=== PATIENT | male | born 1975 | race Hispanic/Latino ===

== ENCOUNTER 2018-10-10 14:56 | Emergency (ER) | payer BC, OTHER ==
--- NOTE | 2018-10-10 15:52 | RAD REPORT ---
EXAM DESCRIPTION: RAD - Chest Single View - 10/10/2018 3:34 pm CLINICAL HISTORY: SOB Chest pain. COMPARISON: No comparisons FINDINGS: Portable technique limits examination quality. The lungs are grossly clear. The heart is normal in size. No displaced fractures. IMPRESSION: No acute intrathoracic process suspected.
[2018-10-10 16:07] LABS: Absolute Lymphocytes (CBC) 2.1 K/uL (0.7-4.9); Absolute Monocytes 0.6 K/uL (0.1-1.3); Absolute Neutrophil 5.3 K/uL (1.8-8.0); Basophils % 0.5 % (0-1.3); Eosinophils % 2.3 % (0-4.4); Hematocrit 44.4 % (39.6-49.0); Monocytes % 7.1 % (3.3-12.3); Protime INR 1.08; RBC Red Blood Cell Count 4.72 M/uL (4.33-5.43)
[2018-10-10 16:08] LABS: Barbiturates NEGATIVE (NEGATIVE); Benzodiazepines NEGATIVE (NEGATIVE); Cocaine NEGATIVE (NEGATIVE); METHAMPHETAM NEGATIVE (NEGATIVE); Methadone NEGATIVE (NEGATIVE); Opiates NEGATIVE (NEGATIVE); Phencyclidine NEGATIVE (NEGATIVE); THC Cannibis NEGATIVE (NEGATIVE)
[2018-10-10 16:19] LABS: ALT/SGPT 32 U/L (12-78); AST/SGOT 29 U/L (15-37); Albumin 4.3 g/dL (3.4-5.0); Alkaline Phosphatase 67 U/L (45-117); BUN Blood Urea Nitrogen 11 mg/dL (7-18); Bicarbonate 29 mmol/L (21-32); Bilirubin Direct 0.2 mg/dL (0-0.2); Bilirubin Total 0.6 mg/dL (0.2-1.0); Glucose Level 124 mg/dL (74-106); NT PRO-BNP 19 pg/mL (<125); Potassium 4.2 mmol/L (3.5-5.1); Protein, Total 8.5 g/dL (6.4-8.2); Sodium Level 138 mmol/L (136-145); Troponin (Emerg Dept Use Only) < 0.02 ng/mL (0.0-0.045)
[2018-10-10 16:34] LABS: Urine Blood NEGATIVE (NEG); Urine Glucose NEGATIVE (NEG); Urine Protein NEGATIVE (NEG); Urine pH 5.5 (5.0-7.0)
[2018-10-10] MEDS ORDERED: LORAZEPAM 1 MG TABLET ONE (17:35)
--- NOTE | 2018-10-10 19:08 | EDPHYS ---
Physician Documentation [facility] Name: Himanshu Brown Age: 42 yrs Sex: Male : 1975 Arrival Date: 10/10/2018 Time: 14:57 Bed 7 Private MD: Filiberto Calvillo ED Physician Carlos A Ann HPI: 10/10 16:03 This 42 yrs old Male presents to ER via Ambulatory with complaints of pm1 Shortness Of Breath, Anxiety. 16:03 The patient has shortness of breath at rest. pm1 16:03 Onset: The symptoms/episode began/occurred today, at 14:00. Duration: The symptoms are pm1 continuous. The patient's shortness of breath is aggravated by Anxiety over rising evangelista in his yard from the rain, is alleviated by nothing. Associated signs and symptoms: Pertinent positives: chest pain, Pertinent negatives: non-productive cough, productive cough, dizziness, fever, nausea, vomiting. Severity of symptoms: in the emergency department the symptoms are unchanged. The patient has not experienced similar symptoms in the past. The patient has not recently seen a physician, the patient's primary care provider is Dr. Calvillo. Historical: - Allergies: 15:19 Mefoxin; iw 15:19 cefoxitin; iw - Home Meds: 15:19 metformin 1,000 mg Oral tab 1 tab 2 times per day [Active]; losartan oral oral once iw daily [Active]; amlodipine oral [Active]; Glipizide Oral once daily [Active]; - PMHx: 15:19 Diverticulitis; iw - PSHx: 15:19 patella bursa excised; iw - Immunization history:: Adult Immunizations not up to date. - Social history:: Smoking status: Patient uses tobacco products, smokes one-half pack cigarettes per day. - Ebola Screening: : Patient negative for fever greater than or equal to 101.5 degrees Fahrenheit, and additional compatible Ebola Virus Disease symptoms Patient denies exposure to infectious person Patient denies travel to an Ebola-affected area in the 21 days before illness onset No symptoms or risks identified at this time. ROS: 16:03 Constitutional: Negative for fever, chills, and weight loss, Eyes: Negative for injury, pm1 pain, redness, and discharge, ENT: Negative for injury, pain, and discharge, Neck: Negative for injury, pain, and swelling. 16:03 Abdomen/GI: Negative for abdominal pain, nausea, vomiting, diarrhea, and constipation, Back: Negative for injury and pain, : Negative for injury, bleeding, discharge, and swelling, MS/Extremity: Negative for injury and deformity, Skin: Negative for injury, rash, and discoloration, Neuro: Negative for headache, weakness, numbness, tingling, and seizure. 16:03 Cardiovascular: Positive for chest pain, of the xyphoid area, Negative for edema, orthopnea, palpitations. 16:03 Respiratory: Positive for shortness of breath, Negative for cough, sputum production, wheezing. 16:03 Psych: Positive for anxiety, Negative for drug dependence, alcohol dependence. Exam: 15:16 NSR, Normal ECG, 83 BPM pm1 16:03 Constitutional: This is a well developed, well nourished patient who is awake, alert, pm1 and in no acute distress. Head/Face: Normocephalic, atraumatic. Eyes: Pupils equal round and reactive to light, extra-ocular motions intact. Lids and lashes normal. Conjunctiva and sclera are non-icteric and not injected. Cornea within normal limits. Periorbital areas with no swelling, redness, or edema. ENT: Nares patent. No nasal discharge, no septal abnormalities noted. Tympanic membranes are normal and external auditory canals are clear. Oropharynx with no redness, swelling, or masses, exudates, or evidence of obstruction, uvula midline. Mucous membranes moist. Neck: Trachea midline, no thyromegaly or masses palpated, and no cervical lymphadenopathy. Supple, full range of motion without nuchal rigidity, or vertebral point tenderness. No Meningismus. Chest/axilla: Normal chest wall appearance and motion. Nontender with no deformity. No lesions are appreciated. Cardiovascular: Regular rate and rhythm with a normal S1 and S2. No gallops, murmurs, or rubs. Normal PMI, no JVD. No pulse deficits. Respiratory: Lungs have equal breath sounds bilaterally, clear to auscultation and percussion. No rales, rhonchi or wheezes noted. No increased work of breathing, no retractions or nasal flaring. Abdomen/GI: Soft, non-tender, with normal bowel sounds. No distension or tympany. No guarding or rebound. No evidence of tenderness throughout. Back: No spinal tenderness. No costovertebral tenderness. Full range of motion. Skin: Warm, dry with normal turgor. Normal color with no rashes, no lesions, and no evidence of cellulitis. MS/ Extremity: Pulses equal, no cyanosis. Neurovascular intact. Full, normal range of motion. 16:03 Neuro: Orientation: is normal, Motor: is normal, moves all fours, strength is normal, strength is 5/5 in all extremities. 16:03 Psych: Behavior/mood is anxious, Affect is animated, Oriented to person, place, time, Patient has no thoughts/intents to harm self or others. Vital Signs: 15:20 BP 142 / 95; Pulse 97; Resp 18; Temp 97.5(TE); Pulse Ox 99% on R/A; Weight 82.55 kg; iw Height 5 ft. 8 in. (172.72 cm); Pain 0/10; 15:54 BP 119 / 89; Pulse 75; Resp 16; Pulse Ox 98% ; bp 16:56 BP 124 / 82; Pulse 77; Resp 16; Pulse Ox 98% ; bp 18:30 BP 123 / 73; Pulse 73; Resp 14; Pulse Ox 100% ; bp 19:27 BP 126 / 89; Pulse 77; Resp 16; Temp 97.9; Pulse Ox 99% on R/A; Pain 0/10; aa1 15:20 Body Mass Index 27.67 (82.55 kg, 172.72 cm) iw MDM: 15:10 Patient medically screened. pm1 16:33 Data reviewed: vital signs. Data interpreted: Pulse oximetry: on room air is 98 %. pm1 Interpretation: normal. 10/10 15:18 Order name: Basic Metabolic Panel pm1 10/10 15:18 Order name: CBC with Diff pm1 10/10 15:18 Order name: LFT's pm10/10 15:18 Order name: Magnesium pm1 10/10 15:18 Order name: NT PRO-BNP; Complete Time: 16:32 pm1 10/10 15:18 Order name: PT-INR; Complete Time: 16:13 pm1 10/10 15:18 Order name: Troponin (emerg Dept Use Only); Complete Time: 16:32 pm1 10/10 15:18 Order name: UDS; Complete Time: 16:13 pm1 10/10 15:18 Order name: D-Dimer; Complete Time: 16:13 pm1 10/10 15:19 Order name: Basic Metabolic Panel; Complete Time: 16:32 EDMS 10/10 15:19 Order name: CBC with Automated Diff; Complete Time: 16:13 EDMS 10/10 15:19 Order name: Liver (Hepatic) Function; Complete Time: 16:32 EDMS 10/10 15:19 Order name: Magnesium; Complete Time: 16:32 EDMS 10/10 15:53 Order name: Urine Dipstick--Ancillary (enter results); Complete Time: 16:37 eb 10/10 15:18 Order name: XRAY Chest (1 view); Complete Time: 15:59 pm1 10/10 15:18 Order name: EKG; Complete Time: 15:20 pm1 10/10 15:18 Order name: Cardiac monitoring; Complete Time: 15:53 pm1 10/10 15:18 Order name: EKG - Nurse/Tech; Complete Time: 15:33 pm1 10/10 15:18 Order name: IV Saline Lock; Complete Time: 15:53 pm1 10/10 15:18 Order name: Labs collected and sent; Complete Time: 15:53 pm1 10/10 15:18 Order name: O2 Per Protocol; Complete Time: 15:34 pm1 10/10 15:18 Order name: O2 Sat Monitoring; Complete Time: 15:34 pm1 10/10 18:06 Order name: Troponin (emerg Dept Use Only); Complete Time: 18:49 bp Administered Medications: 17:10 Drug: Ativan 1 mg Route: PO; bp 19:05 Follow up: Response: No adverse reaction; Marked relief of symptoms; Anxiety decreased aa1 Disposition: 10/10/18 19:07 Discharged to Home. Impression: Chest pain, unspecified. - Condition is Stable. - Discharge Instructions: Nonspecific Chest Pain, Aspirin and Your Heart. - Medication Reconciliation Form, Thank You Letter, Antibiotic Education, Prescription Opioid Use form. - Follow up: Filiberto Calvillo MD; When: 2 - 3 days; Reason: Recheck today's complaints, Continuance of care, Re-evaluation by your physician. Follow up: Emergency Department; When: As needed; Reason: Worsening of condition. Addendum: 10/12/2018 07:02 Co-signature as Attending Physician, Carlos A Ann MD. r n Signatures: Dispatcher [employer] EDMS Carisa Summers RN RN aa1 Missy Marino, MECHANIC AND WELDER-C MECHANIC AND WELDER-Csnw Maryjane Hanks RN RN iw Carlos A Ann MD MD rn Marinas, Patrick, PRESS OPERATOR [employer] PRESS OPERATOR [employer] pm1 Solo Colon RN RN bp Corrections: (The following items were deleted from the chart) 10/10 19:28 19:07 10/10/2018 19:07 Discharged to Home. Impression: Chest pain, unspecified. aa1 Condition is Stable. Forms are Medication Reconciliation Form, Thank You Letter, Antibiotic Education, Prescription Opioid Use. Follow up: Filiberto Calvillo; When: 2 - 3 days; Reason: Recheck today's complaints, Continuance of care, Re-evaluation by your physician. Follow up: Emergency Department; When: As needed; Reason: Worsening of condition. snw
--- NOTE | 2018-10-10 19:08 | ER ---
Nurse's Notes [facility] Name: Himanshu Brown Age: 42 yrs Sex: Male : 1975 Arrival Date: 10/10/2018 Time: 14:57 Bed 7 Private MD: Filiberto Calvillo Diagnosis: Chest pain, unspecified Presentation: 10/10 15:10 Presenting complaint: Patient states: all of a sudden got short of breath and felt some iw tightness in center of chest, denies pain, also states he is diabetic and didn't eat anything til 2:30 and had 3 cups of coffee, also feels a bit anxious. Transition of care: patient was not received from another setting of care. Onset of symptoms was October 10, 2018. Risk Assessment: Do you want to hurt yourself or someone else? Patient reports no desire to harm self or others. Initial Sepsis Screen: Does the patient meet any 2 criteria? No. Patient's initial sepsis screen is negative. Does the patient have a suspected source of infection? No. Patient's initial sepsis screen is negative. Care prior to arrival: None. 15:10 Method Of Arrival: Ambulatory iw 15:10 Acuity: RAJAN 3 iw Triage Assessment: 15:15 General: Appears in no apparent distress. comfortable, Behavior is cooperative, bp appropriate for age, anxious. Pain: Complains of pain in chest. EENT: No deficits noted. Neuro: No deficits noted. Cardiovascular: No deficits noted. Respiratory: Reports shortness of breath Onset: The symptoms/episode began/occurred at an unknown time. the patient has mild shortness of breath. GI: No signs and/or symptoms were reported involving the gastrointestinal system. : No signs and/or symptoms were reported regarding the genitourinary system. Derm: No deficits noted. Musculoskeletal: Circulation, motion, and sensation intact. Range of motion: intact in all extremities. Historical: - Allergies: 15:19 Mefoxin; iw 15:19 cefoxitin; iw - Home Meds: 15:19 metformin 1,000 mg Oral tab 1 tab 2 times per day [Active]; losartan oral oral once iw daily [Active]; amlodipine oral [Active]; Glipizide Oral once daily [Active]; - PMHx: 15:19 Diverticulitis; iw - PSHx: 15:19 patella bursa excised; iw - Immunization history:: Adult Immunizations not up to date. - Social history:: Smoking status: Patient uses tobacco products, smokes one-half pack cigarettes per day. - Ebola Screening: : Patient negative for fever greater than or equal to 101.5 degrees Fahrenheit, and additional compatible Ebola Virus Disease symptoms Patient denies exposure to infectious person Patient denies travel to an Ebola-affected area in the 21 days before illness onset No symptoms or risks identified at this time. Screenin:17 Abuse screen: Denies threats or abuse. Denies injuries from another. Nutritional bp screening: No deficits noted. Tuberculosis screening: No symptoms or risk factors identified. Fall Risk None identified. Assessment: 15:17 General: SEE TRIAGE NOTE. Cardiovascular: Rhythm is regular. Respiratory: Airway is bp patent Respiratory effort is even, unlabored, Breath sounds are clear bilaterally. 15:54 Reassessment: ALL CURRENT ORDERS COMPLETED, RESULTS PENDING. VS STABLE ON MONITOR. bp 18:00 Reassessment: REPEAT CARDIAC ENZYMES AND EKG COMPLETED, RESULTS PENDING FOR DISPO. PT bp ASYMPTOMATIC AT THIS TIME. 19:27 Reassessment: Patient appears in no apparent distress at this time. Patient is alert, aa1 oriented x 3, equal unlabored respirations, skin warm/dry/pink. Patient is alert/active/playful, equal unlabored respirations, skin warm/dry/pink. Discussed d/c \T\ f/u instructions with pt; denies questions or concerns at this time. Ambulatory to lobby with steady gait. Patient denies pain at this time. Patient states feeling better. Vital Signs: 15:20 BP 142 / 95; Pulse 97; Resp 18; Temp 97.5(TE); Pulse Ox 99% on R/A; Weight 82.55 kg; iw Height 5 ft. 8 in. (172.72 cm); Pain 0/10; 15:54 BP 119 / 89; Pulse 75; Resp 16; Pulse Ox 98% ; bp 16:56 BP 124 / 82; Pulse 77; Resp 16; Pulse Ox 98% ; bp 18:30 BP 123 / 73; Pulse 73; Resp 14; Pulse Ox 100% ; bp 19:27 BP 126 / 89; Pulse 77; Resp 16; Temp 97.9; Pulse Ox 99% on R/A; Pain 0/10; aa1 15:20 Body Mass Index 27.67 (82.55 kg, 172.72 cm) ED Course: 14:57 Patient arrived in ED. rg4 14:57 Filiberto Calvillo MD is Private Physician. rg4 15:03 Levi Vasquez NP is PHCP. pm1 15:03 Carlos A Ann MD is Attending Physician. pm1 15:15 Solo Colon, RN is Primary Nurse. bp 15:16 Arm band placed on. bp 15:17 Patient has correct armband on for positive identification. Bed in low position. Call bp light in reach. Side rails up X2. 15:18 Triage completed. iw 15:31 XRAY Chest (1 view) In Process Unspecified. EDMS 15:53 Inserted saline lock: 20 gauge in right antecubital area, using aseptic technique. bp Blood collected. 17:44 PHCP role handed off by Levi Vasquez NP snw 17:44 Missy Marino FNP-C is PHCP. snw 19:07 Filiberto Calvillo MD is Referral Physician. snw 19:27 No provider procedures requiring assistance completed. IV discontinued, intact, aa1 bleeding controlled, No redness/swelling at site. Pressure dressing applied. Administered Medications: 17:10 Drug: Ativan 1 mg Route: PO; bp 19:05 Follow up: Response: No adverse reaction; Marked relief of symptoms; Anxiety decreased aa1 Outcome: 19:07 Discharge ordered by . snw 19:27 Discharged to home ambulatory. aa1 19:27 Condition: good 19:27 Discharge instructions given to patient, Instructed on discharge instructions, follow up and referral plans. Demonstrated understanding of instructions, follow-up care. 19:28 Patient left the ED. aa1 Signatures: Dispatcher [employer] EDMS Carisa Summers RN RN aa1 Missy Marino FNP-C FILM OR VIDEOTAPE EDITOR-CsnMaryjane Love RN RN iw Levi Vasquez NP CHIEF CLIENT OFFICER pm1 Betty Burks rg4 Solo Colon, RN RN bp Corrections: (The following items were deleted from the chart) 15:23 15:20 BP 142 / 95; Pulse 97bpm; Resp 18bpm; Pulse Ox 99% RA; 82.55 kg; Height 5 ft. 8 iw in.; BMI: 27.6; Pain 0/10; iw
[2018-10-10 19:46] VITALS: BP 126/89; TEMP 97.9; O2SAT 99
--- NOTE | 2018-10-11 08:47 | EKG ---
Test Date: 2018-10-10 Test Time: 18:17:27 Life Skills Trainer: PATRICIA MEASUREMENT RESULTS: Intervals: Rate: 69 WA: 154 QRSD: 92 QT: 390 QTc: 417 Parkin: P: 47 WA: 154 QRS: -6 T: 28 INTERPRETIVE STATEMENTS: Normal sinus rhythm Normal ECG Compared to ECG 10/10/2018 15:12:40 No significant changes Electronically Signed On 10-11-18 08:46:05 CDT by Leandro Reyes
--- NOTE | 2018-10-11 08:48 | EKG ---
Test Date: 2018-10-10 Test Time: 15:12:40 Fagoter: LA MEASUREMENT RESULTS: Intervals: Rate: 83 GA: 142 QRSD: 88 QT: 370 QTc: 434 Preble: P: 50 GA: 142 QRS: -13 T: 44 INTERPRETIVE STATEMENTS: Normal sinus rhythm Normal ECG No previous ECG available for comparison Electronically Signed On 10-11-18 08:46:15 CDT by Leandro Reyes
== END 2018-10-10 19:28 | disposition home or self-care (01) ==
LOC: ER 14:56
DX: R07.9 Chest pain, unspecified (principal); F17.210 Nicotine dependence, cigarettes, uncomplicated; Z88.8 Allergy status to other drugs, medicaments and biological substances
CPT/HCPCS: 36415; 71045; 80048; 80076; 80307; 81003; 83735; 83880; 84484; 85025; 85379; 85610; 93005; 99284

== ENCOUNTER 2024-04-29 18:06 | Emergency (ER) | payer BC ==
--- OUTSIDE RECORDS SUMMARY | 2024-04-29 18:09 | XMS REPORT | Continuity of Care Document ---
Author Name Unknown Address [address] [facility] th[address] Address [address] [facility] [place] [address] Care Team Providers Care Preparator Name Role Phone Unavailable Unavailable Unavailable Allergies, Adverse Reactions, Alerts Allergy Name Allergy Type Status Severity Reaction(s) Onset Date Inactive Date Treating Clinician Comments Source [facility] Active Hives 2019-06 00:00: 00 [facility] NO KNOWN ALLERGIE S Drug Class Active [facility] Encounters Start Date/Time End Date/Time Encounter Type Admission Type Attending Clinicians Care Facility Care Department Encounter ID Source 2020-05-27 19:30:00 2020-05-27 19:30:00 Emergency X [facility] ERT [id number] [facility] 2020-05-27 17:51:00 2020-05-27 17:51:00 Emergency X [facility] ERT [id number] [facility]
[2024-04-29 18:37] LABS: Absolute Monocytes 0.4 K/uL (0.1-1.3); Absolute Neutrophil 5.9 K/uL (1.8-8.0); Basophils % 0.5 % (0-1.3); Eosinophils % 0.4 % (0-4.4); Hematocrit 41.5 % (39.6-49.0); Hemoglobin 14.4 g/dL (13.6-17.9); Lymphocytes % 13.1 % (15.3-44.8); MCH 32.7 pg (27.0-35.0); MCHC 34.8 g/dL (32.0-36.0); MCV 93.9 fL (80-100); MPV 8.6 fL (7.6-11.3); Monocytes % 5.1 % (3.3-12.3); Neutrophils % 80.9 % (41.7-73.7); Nucleated Red Blood Cells % 0.1 % (0-0); Platelets 203 thou/uL (152-406); RBC Red Blood Cell Count 4.42 M/uL (4.33-5.43)
[2024-04-29 19:04] LABS: Albumin 4.1 g/dL (3.4-5.0); Anion Gap 13.4 mEq/L (5.0-15.0); Bilirubin Direct 0.2 mg/dL (0-0.2); Bilirubin Indirect, Calculated 0.4 mg/dL (0.2-0.8); Bilirubin Total 0.6 mg/dL (0.2-1.0); Potassium 3.4 mEq/L (3.5-5.1); Protein, Total 8.1 g/dL (6.4-8.2); Thyroid Stimulating Hormone 1.68 uIU/mL (0.358-3.740); Troponin High Sensitivity 3.6 pg/mL (<58.9)
--- NOTE | 2024-04-29 19:10 | RAD REPORT ---
EXAM: Chest Single View HISTORY: PALPITATIONS COMPARISON: None. FINDINGS: LUNGS/PLEURA: The lungs are clear. No pleural effusions or pneumothorax. No pulmonary edema. MEDIASTINUM: The mediastinal silhouette is within normal limits. CARDIAC: The cardiac silhouette is within normal limits. UPPER ABDOMEN: No significant abnormality. BONES: No acute fracture. LINES/TUBES/OTHER: N/A IMPRESSION: No evidence of acute cardiopulmonary disease.
--- NOTE | 2024-04-29 19:34 | EDPHYS ---
Physician Documentation [facility] Name: Himanshu Brown Age: 48 yrs Sex: Male : 1975 Arrival Date: 04/29/2024 Time: 18:06 Bed 18 Private MD: ED Physician Ruddy Costa HPI: 04/29 18:46 This 48 yrs old Male presents to ER via Ambulatory with complaints of High rt Blood Pressure, Chest Tightness, Palpitations. 18:46 Patient presents to the ED with palpitations, poor shortness of breath after checking rt his blood pressure. Patient checked his pressure this morning noted that was about 119 systolic, noted that was 135 this afternoon, he rechecked it was to be after, noted that was 145, then checked it again, noting that was 160, subsequent developed reported palpitations, shortness of breath. Patient denies other complaint at this time, symptoms are moderate in severity, no other aggravating alleviating factors.. Historical: - Allergies: 18:18 cefoxitin; ap3 18:18 Mefoxin; ap3 - PMHx: 18:18 Diverticulitis; Hypertensive disorder; Diabetes mellitus; ap3 - Immunization history:: Client reports having NOT received the Covid vaccine. - Infectious Disease History:: Denies. - Social history:: Smoking status: Patient reports the use of cigarette tobacco products, smokes one pack cigarettes per day. - Family history:: not pertinent. ROS: 18:46 Constitutional: Negative for fever, chills, and weight loss, Abdomen/GI: Negative for rt abdominal pain, nausea, vomiting, diarrhea, and constipation, MS/Extremity: Negative for injury and deformity, Skin: Negative for injury, rash, and discoloration, Neuro: Negative for headache, weakness, numbness, tingling, and seizure, 18:46 Cardiovascular: Positive for palpitations, Negative for chest pain, 18:46 Respiratory: Positive for shortness of breath, Negative for cough, Exam: 18:46 Constitutional: This is a well developed, well nourished patient who is awake, alert, rt and in no acute distress. Head/Face: Normocephalic, atraumatic. Chest/axilla: Normal chest wall appearance and motion. Nontender with no deformity. No lesions are appreciated. Cardiovascular: Regular rate and rhythm with a normal S1 and S2. No gallops, murmurs, or rubs. Normal PMI, no JVD. No pulse deficits. Respiratory: Lungs have equal breath sounds bilaterally, clear to auscultation and percussion. No rales, rhonchi or wheezes noted. No increased work of breathing, no retractions or nasal flaring. Abdomen/GI: Soft, non-tender, with normal bowel sounds. No distension or tympany. No guarding or rebound. No evidence of tenderness throughout. Skin: Warm, dry with normal turgor. Normal color with no rashes, no lesions, and no evidence of cellulitis. MS/ Extremity: Pulses equal, no cyanosis. Neurovascular intact. Full, normal range of motion. Neuro: Awake and alert, GCS 15, oriented to person, place, time, and situation. Cranial nerves II-XII grossly intact. Motor strength 5/5 in all extremities. Sensory grossly intact. Cerebellar exam normal. Normal gait. 18:46 ECG was reviewed by the Attending Physician. Vital Signs: 18:16 BP 140 / 91; Pulse 77; Resp 18; Temp 98.6(O); Pulse Ox 100% on R/A; Weight 81.65 kg; ap3 18:37 BP 125 / 81; Pulse 74; Resp 17; Pulse Ox 99% on R/A; rs5 19:10 BP 122 / 90; Pulse 75; Resp 17; Pulse Ox 99% on R/A; Pain 0/10; rg5 19:10 Pain Scale: Adult rg5 MDM: 18:15 Medical Screening Exam initiated rt 19:37 Differential diagnosis: Palpitations, ACS, dysrhythmia, hyperthyroidism, essential rt hypertension. Data reviewed: vital signs, nurses notes, lab test result(s), EKG, radiologic studies. Consideration of Admission/Observation Escalation of care including admission/observation considered. No true chest pain, low troponin, no ischemic changes on EKG, very low suspicion for acute coronary syndrome. Blood pressure improving without treatment in the ED, stable for outpatient care, return precautions discussed.. Independent interpretation of the following test(s) in the Emergency Department X-Ray: My interpretation is No infiltrate seen on my interpretation of x-ray images. Care significantly affected by the following chronic conditions: Hypertension. Counseling: I had a detailed discussion with the patient and/or guardian regarding the historical points, exam findings, and any diagnostic results supporting the discharge/admit diagnosis, the presence of at least one elevated blood pressure reading (>120/80) during this emergency department visit, lab results, radiology results, the need for outpatient follow up, to return to the emergency department if symptoms worsen or persist or if there are any questions or concerns that arise at home. Response to treatment: the patient's symptoms have markedly improved after treatment. 04/29 18:22 Order name: Basic Metabolic Panel; Complete Time: 19:06 rt 04/29 18:22 Order name: CBC with Diff; Complete Time: 19:06 rt 04/29 18:22 Order name: LFT's; Complete Time: 19:06 rt 04/29 18:22 Order name: Troponin HS; Complete Time: 19:06 rt 04/29 18:22 Order name: TSH; Complete Time: 19:06 rt 04/29 18:22 Order name: XRAY Chest (1 view); Complete Time: 19:14 rt 04/29 18:22 Order name: Cardiac monitoring; Complete Time: 18:35 rt 04/29 18:22 Order name: EKG - Nurse/Tech; Complete Time: 18:35 rt 04/29 18:22 Order name: IV Saline Lock; Complete Time: 18:35 rt 04/29 18:22 Order name: Labs collected and sent; Complete Time: 18:35 rt 04/29 18:22 Order name: O2 Per Protocol; Complete Time: 18:35 rt 04/29 18:22 Order name: O2 Sat Monitoring; Complete Time: 18:35 rt EC:46 Rate is 74 beats/min. Rhythm is regular, Normal Sinus Rhythm with No ectopy. QRS [place] rt is Normal. DE interval is normal. QRS interval is normal. QT interval is normal. No Q waves. T waves are Normal. No ST changes noted. Interpreted by me. Administered Medications: No medications were administered Disposition Summary: 04/29/24 19:33 Discharge Ordered Notes: Location: Home rt Condition: Stable rt Diagnosis - Palpitations rt - Essential (primary) hypertension rt Followup: rt - With: Private Physician - When: 5 - 6 days - Reason: Discharge Instructions: - Discharge Summary Sheet rt - Hypertension, Adult rt - Palpitations rt Forms: - Medication Reconciliation Form rt - Antibiotic Education rt - Prescription Opioid Use rt - Patient Portal Instructions rt - Leadership Thank You Letter rt Signatures: Dispatcher [employer] Yessenia Hennessy RN RN ap3 Ruddy Costa MD MD rt Corrections: (The following items were deleted from the chart) 18:23 18:23 Chest Single View+[email or web address] ordered. SUZI ARCHER
--- NOTE | 2024-04-29 19:34 | ER ---
Nurse's Notes [facility] Name: Himanshu Brown Age: 48 yrs Sex: Male : 1975 Arrival Date: 04/29/2024 Time: 18:06 Bed 18 Private MD: Diagnosis: Palpitations;Essential (primary) hypertension Presentation: 04/29 18:16 Chief complaint: Patient states: he started having palpitations approx 30 mins prior to ap3 arrival and was also having high blood pressure. patient denies any pain at this time. Coronavirus screen: At this time, the client does not indicate any symptoms associated with coronavirus-19. Ebola Screen: No symptoms or risks identified at this time. Initial Sepsis Screen: Does the patient meet any 2 criteria? No. Patient's initial sepsis screen is negative. Does the patient have a suspected source of infection? No. Patient's initial sepsis screen is negative. Risk Assessment: Do you want to hurt yourself or someone else? Patient reports no desire to harm self or others. Onset of symptoms was April 29, 2024. 18:16 Method Of Arrival: Ambulatory ap3 18:16 Acuity: RAJAN 2 ap3 Triage Assessment: 18:19 General: Appears in no apparent distress. Behavior is cooperative, anxious. Pain: ap3 Denies pain. Neuro: Level of Consciousness is awake, alert, obeys commands, Oriented to person, place, time, situation. Cardiovascular: Patient's skin is warm and dry. Cardiovascular: Reports palpitations. Respiratory: Airway is patent Respiratory effort is even, unlabored, Respiratory pattern is regular, symmetrical. Historical: - Allergies: 18:18 cefoxitin; ap3 18:18 Mefoxin; ap3 - PMHx: 18:18 Diverticulitis; Hypertensive disorder; Diabetes mellitus; ap3 - Immunization history:: Client reports having NOT received the Covid vaccine. - Infectious Disease History:: Denies. - Social history:: Smoking status: Patient reports the use of cigarette tobacco products, smokes one pack cigarettes per day. - Family history:: not pertinent. Screenin:10 [facility] ED Fall Risk Assessment (Adult) History of falling in the last 3 months, rs5 including since admission No falls in past 3 months (0 pts) Confusion or Disorientation No (0 pts) Intoxicated or Sedated No (0 pts) Impaired Gait No (0 pts) Mobility Assist Device Used No (0 pt) Altered Elimination No (0 pt) Score/Fall Risk Level 0 - 2 = Low Risk Oriented to surroundings, Maintained a safe environment. 18:19 Abuse screen: Denies threats or abuse. Nutritional screening: No deficits noted. ap3 Tuberculosis screening: No symptoms or risk factors identified. Assessment: 18:10 General: Appears in no apparent distress. uncomfortable, Behavior is calm, cooperative. rs5 Pain: Complains of pain in chest Pain does not radiate. Pain currently is 3 out of 10 on a pain scale. Quality of pain is described as heavy, pressure, Pain began Is continuous. Neuro: Level of Consciousness is awake, alert, obeys commands, Oriented to person, place, time, situation. Cardiovascular: Patient's skin is warm and dry. Respiratory: Airway is patent Respiratory effort is even, unlabored, Respiratory pattern is regular, symmetrical. GI: Abdomen is round non-distended, Abd is soft and non tender X 4 quads. : No signs and/or symptoms were reported regarding the genitourinary system. EENT: No signs and/or symptoms were reported regarding the EENT system. Derm: Skin is intact, Skin is pink, warm \T\ dry. Musculoskeletal: Range of motion: intact in all extremities. 18:21 Reassessment: Patient and/or family updated on plan of care and expected duration. Pain rs5 level reassessed. Patient is alert, oriented x 3, equal unlabored respirations, skin warm/dry/pink. 19:05 Reassessment: No changes from previously documented assessment. Patient and/or family rg5 updated on plan of care and expected duration. Pain level reassessed. Patient is alert, oriented x 3, equal unlabored respirations, skin warm/dry/pink. 19:05 General: Appears in no apparent distress. Behavior is calm, cooperative. rg5 Cardiovascular: Denies chest pain, Patient's skin is warm and dry. Rhythm is sinus rhythm. Vital Signs: 18:16 BP 140 / 91; Pulse 77; Resp 18; Temp 98.6(O); Pulse Ox 100% on R/A; Weight 81.65 kg; ap3 18:37 BP 125 / 81; Pulse 74; Resp 17; Pulse Ox 99% on R/A; rs5 19:10 BP 122 / 90; Pulse 75; Resp 17; Pulse Ox 99% on R/A; Pain 0/10; rg5 19:10 Pain Scale: Adult rg5 ED Course: 18:07 Patient arrived in ED. im 18:09 Gregory Mo, RN is Primary Nurse. rs5 18:10 No provider procedures requiring assistance completed. rs5 18:12 Ruddy Costa MD is Attending Physician. rt 18:15 Inserted saline lock: 20 gauge in left antecubital area, using aseptic technique. Blood rs5 collected. Flushed with 10 mL NS. 18:18 Triage completed. ap3 18:19 Arm band placed on right wrist. ap3 18:19 Patient has correct armband on for positive identification. Placed in gown. Bed in low ap3 position. Call light in reach. Adult w/ patient. Client placed on continuous cardiac and pulse oximetry monitoring. NIBP monitoring applied. conveyor monitor on. Pulse ox on. NIBP on. 18:19 Patient maintains SpO2 saturation greater than 95% on room air. ap3 18:20 EKG done, by ED staff, reviewed by Ruddy Costa MD. ap3 19:00 XRAY Chest (1 view) In Process Unspecified. EDMS 19:44 Provided Education on: POST ER CARE. rg5 19:44 IV discontinued, bleeding controlled, No redness/swelling at site. Pressure dressing rg5 applied. Administered Medications: No medications were administered Medication: 18:20 VIS not applicable for this client. rs5 Outcome: 19:33 Discharge ordered by . rt 19:44 Discharged to home ambulatory, rg5 19:44 Condition: stable 19:44 Discharge instructions given to patient, family, Instructed on discharge instructions, follow up and referral plans. Demonstrated understanding of instructions, follow-up care, 19:44 Patient left the ED. rg5 Signatures: Dispatcher [employer] EDMS Yessenia Lamb RN RN ap3 Ruddy Costa MD MD rt Gregory Mo, RN RN rs5 Colleen Gandara Rommel, RN RN rg5
[2024-04-29 20:08] VITALS: TEMP 98.6
[2024-04-29 20:09] VITALS: O2SAT 99
[2024-04-29 20:10] VITALS: BP 122/90
--- NOTE | 2024-05-02 14:17 | EKG ---
Test Date: 2024-04-29 Test Time: 18:13:00 Field Collector: JAS MEASUREMENT RESULTS: Intervals: Rate: 74 NV: 162 QRSD: 90 QT: 406 QTc: 450 [place]: P: 55 NV: 162 QRS: 3 T: 36 INTERPRETIVE STATEMENTS: Normal sinus rhythm Normal ECG Compared to ECG 10/10/2018 18:17:27 No significant changes Electronically Signed On 05-02-24 14:14:[address] SUPERVISOR by Jose Juan Rayo
== END 2024-04-29 19:44 | disposition home or self-care (01) ==
LOC: ER 18:06
DX: R00.2 Palpitations (principal); I10 Essential (primary) hypertension; E11.9 Type 2 diabetes mellitus without complications; F17.210 Nicotine dependence, cigarettes, uncomplicated
CPT/HCPCS: 36415; 71045; 80048; 80076; 84443; 84484; 85025; 93005; 99284

== ENCOUNTER 2024-09-19 00:36 | Emergency (ER) | payer BC ==
--- OUTSIDE RECORDS SUMMARY | 2024-09-19 00:40 | XMS REPORT | Continuity of Care Document ---
Author Name Unknown Address [address] [facility] [address] [place] [address] [facility] [place] Address [address] [facility] [place] [address] Care Team Providers Care Consignee Name Role Phone Rajinder Reed MD, [facility] Primary Care Physici an Nusrat Bowles DPM Attending Clinician [phone] NUSRAT BOWLES Attending Clinician Radha diehl Payers Payer Name Policy Type Policy Number Effective Date Expirati on Date Source Allergies, Adverse Reactions, Alerts Allergy Name Allergy Type Status Severity Reaction(s) Onset Date Inactive Date Treating Clinician Comments Source Cefoxiti n Propensi ty to adverse reaction s Active 06-17 00:00: 00 David Barr [facility] [employer] Active Hives 2019-06 00:00: 00 [facility] NO KNOWN ALLERGIE S Drug Class Active [facility] Social History Social Habit Start Date Stop Date Quantity Comments Source Gender identity 2023-08-24 06:04:47 Identifies as male gender (finding) [facility] Sexual orientation M [facility] Barr Smoking Status Start Date Stop Date Source Tobacco smoking consumption unknown [facility] Medications Ordered Medication Name Filled Medication Name Start Date Stop Date Current Medication? Ordering Clinician Indication Dosage Frequency Signature (SIG) Comments Components Source mupirocin (Bactroban) 2 % ointment mupirocin (Bactroban) 2 % ointment 06-17 00:00: 00 2025- 01-26 23:59 :00 No [id number] 3D Apply topically 3 times a day for 10 days. [facility] Encounters Start Date/Time End Date/Time Encounter Type Admission Type Attending [facility] Care Department Encounter ID Source 2024-08-19 12:20:00 2024-08-19 12:30:31 Office Visit Nusrat Bowles [facility] [id number] [facility] 2024-08-19 12:14:18 2024-08-19 12:30:31 Outpatient Elective NUSRAT BOWLES [facility] [id number] [facility] 2024-08-05 11:10:00 2024-08-05 11:42:39 Office Visit Nusrat Bowles [facility] 1..840.114 [id number] [facility] 2024-08-05 11:05:26 2024-08-05 11:42:39 [facility]patient [facility] [id number] [facility] 2024-07-22 10:41:05 2024-07-22 11:40:57 Outpatient [facility] [id number] [facility] 2024-07-22 10:40:00 2024-07-22 11:40:57 Office Visit Nusrat Bowles [facility] 1..840.114 [id number] [facility] 2024-07-01 11:00:00 2024-07-01 11:09:25 Office Visit Nusrat Bowles [facility] [id number] David Madden [facility] 2024-07-01 10:49:21 2024-07-01 11:09:25 Outpatient Elective BOWLESASHLEYLI MAVISCONSTANTINO [facility] [id number] [facility] 2024-06-17 12:30:00 2024-06-17 13:17:03 Consult Nusrat Bowles [place] [facility] 1..840.114 [id number] David Madden [facility] 2024-06-17 12:20:18 2024-06-17 13:17:03 Outpatient Elective RAEGAN [facility] [id number] [facility] 2020-05-27 19:30:00 2020-05-27 19:30:00 Emergency X [facility] [id number] [facility] 2020-05-27 17:51:00 2020-05-27 17:51:00 Emergency X [facility] [id number] [facility] Notes Upcoming Encounters Date/Time Note Provider Source 2024-08-19 18:33:05 ELVIRA Lombardo - 08/19/2024 12:20 PM CDT History of Present Illness Patient relates no pain to heel and states he is doing well. Patient has not applied medication this week bc of work demands. --- Patient started use of topical salicylic acid to right foot plantar heel lesion daily. Patient states that upon removal of dressing daily lesion seems to be loosening. Patient denies pain and has continued with activity. ---- Patient relates he continued use of topical antibiotic ointment, but states he stopped 3 days ago. Patient relates that callus is again buildup at site and is causing discomfort. ---- Patient states he has continued covering wound and applying mupirocin ointment. Patient states he just started the mupirocin ointment 2 days ago as he had delays in receiving it from the pharmacy. Patient relates wound has healed over but he still has mild tenderness to the area. ---- Patient states he developed a hard ball on the bottom of his heel he did not know what it came from. Patient relates that he thought it was perhaps a wart and that his tried to use a home freezing kit clinic. They relate it did not work and that they have been peeling off layers of the "wart. "He states that when he peels layers of the wart he notices small black pieces of debris from the area. Patient has been offloading the area with donut pad. Patient states he is a well-controlled diabetic. Patient's most recent A1c was 6.0. Patient denies injury Patient states local signs of infection, but patient denies systemic signs of infection Patient states pain currently rated 4/10 on palpation. PHYSICAL EXAM OF THE LOWER EXTREMITY: Vascular (-) ecchymosis, (-) erythema Dorsal pedis pulse, bilateral - 2/4; Posterior tibial pulse, bilateral- 2/4 Capillary Refill time: within normal limits (-) varicosities, (+) pedal hair growth. Neurological (+) sensation with 5.07 Baxley Radha monofilament examination to the most distal lower extremity (-) tinel's sign (-) clonus present Dermatological (+) Plantar lesion shows mild maceration, upon debridement lesion excised from plantar heel with minimal extension of lesion noted (-) signs of infection (-) abscess (-) purulence (-) ischemic tissue (-) other primary or secondary lesions (+) normal temperature when compared to contralateral limb (+) normal color, tugor, and elasticity Musculoskeletal (+) Minimal pain on palpation of plantar lesion- improved after debridement (-) gross osseous abnormalities 5/5 muscle strength to extrinsic pedal muscle groups (-) evidence of compartment syndrome (-) evidence of deep vein thrombosis (-) Patient to begin use of topical salicylic acid with occlusion of duct tape daily. Assessments: RIGHT foot plantar lesion Treatment - Extensive visit discussing possible pedal complications associated with plantar lesions - Antibiotics - continue topical mupirocin given, detailed instructions provided - Pain -improved, continue offloading pad - Wound -Sharp debridement performed with excision of possible forward substitutes. Performed without complications. - Culture - since there was no purulence, a specimen was unable to be obtained - Vascular - no further studies indicated with healthy bleeding during debridement - Weight bearing - continue use of offloading, continue use of stable shoe gear - Return 2 week Patient advised to report to my clinic or the emergency room immediately with any questions or concerns. Patient Instructions: Discussion: A detailed discussion was provided to the patient with specific reference to etiology, pathology, alternate treatment options, and prognosis. All risks and complications (including side effects) with each treatment/medication alternative were outlined in detail including but not limited to: Pain, swelling, numbness, loss of function, loss of limb, bleeding, hematoma, scarring, failure to relieve condition, surgery, additional/revisional surgery, reflex sympathetic dystrophy, complex regional pain syndrome, reoccurrence of deformity, joint stiffness, flail toe, bone and/or soft tissue infection, blood clots, pulmonary embolism, possible , delayed or non-healing. X-rays, graphs and drawings were all used to assist with patient comprehension when appropriate. All patients questions were answered and stated they fully understood. No guarantee as to results or outcome of treatment was made. I have discussed with the patient or legally responsible person prior to obtaining consent: the risks, potential benefits and drawbacks, significant alternatives, potential for problems related to recuperation, likelihood of success, and possible results of non-treatment, and the patient or the legally responsible person has agreed to proceed. [facility] Due Date Last Done Comments CT Colonography 1975 Colonoscopy 1975 Colorectal Cancer Screening 1975 FIT-DNA 1975 FIT 1975 FOBT 1975 Lipid Panel 1975 Sigmoidoscopy 1975 Annual Physical 10/22/1978 DTaP/Tdap/Td Vaccines (1 - Tdap) 10/22/1994 Hepatitis B Vaccines (1 of 3 - 19+ 3-dose series) 10/22/1994 Influenza Vaccine (#1) 2024 HIB Vaccines Aged Out No longer eligi ble based on patient's age to complete this topic HPV Vaccines Aged Out No longer eligi ble based on patient's age to complete this topic Hepatitis A Vaccines Aged Out No long er eligible based on patient's age to complete this topic IPV Vaccines Aged Out No longer eligi ble based on patient's age to complete this topic Meningococcal Vaccine Aged Out No pennie david eligible based on patient's age to complete this topic Pneumococcal Vaccine: Pediat rics (0 to 5 Years) and At-Risk Patients (6 to 64 Years) Aged Out No longer eligible b ased on patient's age to complete this topic Rotavirus Vaccines Aged Out No longer eligible based on patient's age to complete this topic [id number] 18:33:05 Diagnosis Abnormal foot finding - Prim kal [facility]3833[facility]47-86 18:33:05 [facility]27-92 18:33:05* Nusrat Bowles, JORY - 08/19/2024 12:20 PM CDT History of Present Illness Patient relates no pain to heel and states he is doing well. Patient has not applied medication this week bc of work demands. --- Patient started use of topical salicylic acid to right foot plantar heel lesion daily. Patient states that upon removal of dressing daily lesion seems to be loosening. Patient denies pain and has continued with activity. ---- Patient relates he continued use of topical antibiotic ointment, but states he stopped 3 days ago. Patient relates that callus is again buildup at site and is causing discomfort. ---- Patient states he has continued covering wound and applying mupirocin ointment. Patient states he just started the mupirocin ointment 2 days ago as he had delays in receiving it from the pharmacy. Patient relates wound has healed over but he still has mild tenderness to the area. ---- Patient states he developed a hard ball on the bottom of his heel he did not know what it came from. Patient relates that he thought it was perhaps a wart and that his tried to use a home freezing kit clinic. They relate it did not work and that they have been peeling off layers of the "wart. "He states that when he peels layers of the wart he notices small black pieces of debris from the area. Patient has been offloading the area with donut pad. Patient states he is a well-controlled diabetic. Patient's most recent A1c was 6.0. Patient denies injury Patient states local signs of infection, but patient denies systemic signs of infection Patient states pain currently rated 4/10 on palpation. PHYSICAL EXAM OF THE LOWER EXTREMITY: Vascular (-) ecchymosis, (-) erythema Dorsal pedis pulse, bilateral - 2/4; Posterior tibial pulse, bilateral- 2/4 Capillary Refill time: within normal limits (-) varicosities, (+) pedal hair growth. Neurological (+) sensation with 5.07 Baxley Radha monofilament examination to the most distal lower extremity (-) tinel's sign (-) clonus present Dermatological (+) Plantar lesion shows mild maceration, upon debridement lesion excised from plantar heel with minimal extension of lesion noted (-) signs of infection (-) abscess (-) purulence (-) ischemic tissue (-) other primary or secondary lesions (+) normal temperature when compared to contralateral limb (+) normal color, tugor, and elasticity Musculoskeletal (+) Minimal pain on palpation of plantar lesion- improved after debridement (-) gross osseous abnormalities 5/5 muscle strength to extrinsic pedal muscle groups (-) evidence of compartment syndrome (-) evidence of deep vein thrombosis (-) Patient to begin use of topical salicylic acid with occlusion of duct tape daily. Assessments: RIGHT foot plantar lesion Treatment - Extensive visit discussing possible pedal complications associated with plantar lesions - Antibiotics - continue topical mupirocin given, detailed instructions provided - Pain -improved, continue offloading pad - Wound -Sharp debridement performed with excision of possible forward substitutes. Performed without complications. - Culture - since there was no purulence, a specimen was unable to be obtained - Vascular - no further studies indicated with healthy bleeding during debridement - Weight bearing - continue use of offloading, continue use of stable shoe gear - Return 2 week Patient advised to report to my clinic or the emergency room immediately with any questions or concerns. Patient Instructions: Discussion: A detailed discussion was provided to the patient with specific reference to etiology, pathology, alternate treatment options, and prognosis. All risks and complications (including side effects) with each treatment/medication alternative were outlined in detail including but not limited to: Pain, swelling, numbness, loss of function, loss of limb, bleeding, hematoma, scarring, failure to relieve condition, surgery, additional/revisional surgery, reflex sympathetic dystrophy, complex regional pain syndrome, reoccurrence of deformity, joint stiffness, flail toe, bone and/or soft tissue infection, blood clots, pulmonary embolism, possible , delayed or non-healing. X-rays, graphs and drawings were all used to assist with patient comprehension when appropriate. All patients questions were answered and stated they fully understood. No guarantee as to results or outcome of treatment was made. I have discussed with the patient or legally responsible person prior to obtaining consent: the risks, potential benefits and drawbacks, significant alternatives, potential for problems related to recuperation, likelihood of success, and possible results of non-treatment, and the patient or the legally responsible person has agreed to proceed. [id number] 18:33:05Upcoming Encounters Health Maintenance Due Date Last Done Comments CT Colonography 1975 Colonoscopy 1975 Colorectal Cancer Screening 1975 FIT-DNA 1975 FIT 1975 FOBT 1975 Lipid Panel 1975 Sigmoidoscopy 1975 Annual Physical 10/22/1978 DTaP/Tdap/Td Vaccines (1 - Tdap) 10/22/1994 Hepatitis B Vaccines (1 of 3 - 19+ 3-dose series) 10/22/1994 Influenza Vaccine (#1) 2024 HIB Vaccines Aged Out No longer eligi ble based on patient's age to complete this topic HPV Vaccines Aged Out No longer eligi ble based on patient's age to complete this topic Hepatitis A Vaccines Aged Out No long er eligible based on patient's age to complete this topic IPV Vaccines Aged Out No longer eligi ble based on patient's age to complete this topic Meningococcal Vaccine Aged Out No pennie david eligible based on patient's age to complete this topic Pneumococcal Vaccine: Pediat rics (0 to 5 Years) and At-Risk Patients (6 to 64 Years) Aged Out No longer eligible b ased on patient's age to complete this topic Rotavirus Vaccines Aged Out No longer eligible based on patient's age to complete this topic [facility]eyahyh7063-25-17 18:33:05 Diagnosis Abnormal foot finding - Prim kal [facility]Hqdslfp2053-21-47 18:33:05 [facility]faqidj9820-99-96 13:14:34* Nusrat Bowles DPM - 08/05/2024 11:10 AM PHYSIOGNOMIST History of Present Illness FOREIGN BODY, plantar RIGHT heel Patient started use of topical salicylic acid to right foot plantar heel lesion daily. Patient states that upon removal of dressing daily lesion seems to be loosening. Patient denies pain and has continued with activity. ---- Patient relates he continued use of topical antibiotic ointment, but states he stopped 3 days ago. Patient relates that callus is again buildup at site and is causing discomfort. ---- Patient states he has continued covering wound and applying mupirocin ointment. Patient states he just started the mupirocin ointment 2 days ago as he had delays in receiving it from the pharmacy. Patient relates wound has healed over but he still has mild tenderness to the area. ---- Patient states he developed a hard ball on the bottom of his heel he did not know what it came from. Patient relates that he thought it was perhaps a wart and that his tried to use a home freezing kit clinic. They relate it did not work and that they have been peeling off layers of the "wart. "He states that when he peels layers of the wart he notices small black pieces of debris from the area. Patient has been offloading the area with donut pad. Patient states he is a well-controlled diabetic. Patient's most recent A1c was 6.0. Patient denies injury Patient states local signs of infection, but patient denies systemic signs of infection Patient states pain currently rated 4/10 on palpation. PHYSICAL EXAM OF THE LOWER EXTREMITY: Vascular (-) ecchymosis, (-) erythema Dorsal pedis pulse, bilateral - 2/4; Posterior tibial pulse, bilateral- 2/4 Capillary Refill time: within normal limits (-) varicosities, (+) pedal hair growth. Neurological (+) sensation with 5.07 Baxley Radah monofilament examination to the most distal lower extremity (-) tinel's sign (-) clonus present Dermatological (+) Plantar lesion shows maceration, upon debridement lesion excised from plantar heel with minimal extension of lesion noted (-) signs of infection (-) abscess (-) purulence (-) ischemic tissue (-) other primary or secondary lesions (+) normal temperature when compared to contralateral limb (+) normal color, tugor, and elasticity Musculoskeletal (+) Minimal pain on palpation of plantar lesion- improved after debridement (-) gross osseous abnormalities 5/5 muscle strength to extrinsic pedal muscle groups (-) evidence of compartment syndrome (-) evidence of deep vein thrombosis (-) Patient to begin use of topical salicylic acid with occlusion of duct tape daily. Assessments: RIGHT foot plantar lesion Treatment - Extensive visit discussing possible pedal complications associated with plantar lesions - Antibiotics - continue topical mupirocin given, detailed instructions provided - Pain -improved, continue offloading pad - Wound -Sharp debridement performed with excision of possible forward substitutes. Performed without complications. - Culture - since there was no purulence, a specimen was unable to be obtained - Vascular - no further studies indicated with healthy bleeding during debridement - Weight bearing - continue use of offloading, continue use of stable shoe gear - Return 1 week Patient advised to report to my clinic or the emergency room immediately with any questions or concerns. Patient Instructions: Discussion: A detailed discussion was provided to the patient with specific reference to etiology, pathology, alternate treatment options, and prognosis. All risks and complications (including side effects) with each treatment/medication alternative were outlined in detail including but not limited to: Pain, swelling, numbness, loss of function, loss of limb, bleeding, hematoma, scarring, failure to relieve condition, surgery, additional/revisional surgery, reflex sympathetic dystrophy, complex regional pain syndrome, reoccurrence of deformity, joint stiffness, flail toe, bone and/or soft tissue infection, blood clots, pulmonary embolism, possible , delayed or non-healing. X-rays, graphs and drawings were all used to assist with patient comprehension when appropriate. All patients questions were answered and stated they fully understood. No guarantee as to results or outcome of treatment was made. I have discussed with the patient or legally responsible person prior to obtaining consent: the risks, potential benefits and drawbacks, significant alternatives, potential for problems related to recuperation, likelihood of success, and possible results of non-treatment, and the patient or the legally responsible person has agreed to proceed. [facility]2025-03-06 13:14:34Upcoming Encounters Health Maintenance Due Date Last Done Comments CT Colonography 1975 Colonoscopy 1975 Colorectal Cancer Screening 1975 FIT-DNA 1975 FIT 1975 FOBT 1975 Lipid Panel 1975 Sigmoidoscopy 1975 Annual Physical 10/22/1978 DTaP/Tdap/Td Vaccines (1 - Tdap) 10/22/1994 Hepatitis B Vaccines (1 of 3 - 19+ 3-dose series) 10/22/1994 Influenza Vaccine (#1) 2024 HIB Vaccines Aged Out No longer eligi ble based on patient's age to complete this topic HPV Vaccines Aged Out No longer eligi ble based on patient's age to complete this topic Hepatitis A Vaccines Aged Out No long er eligible based on patient's age to complete this topic IPV Vaccines Aged Out No longer eligi ble based on patient's age to complete this topic Meningococcal Vaccine Aged Out No pennie david eligible based on patient's age to complete this topic Pneumococcal Vaccine: Pediat rics (0 to 5 Years) and At-Risk Patients (6 to 64 Years) Aged Out No longer eligible b ased on patient's age to complete this topic Rotavirus Vaccines Aged Out No longer eligible based on patient's age to complete this topic [place] [id number] 13:14:34 Diagnosis Abnormal foot finding - Prim kal [facility]qloeyt6893-58-55 13:14:34 [place] [id number] 13:14:34* Nusrat Bowles, JORY - 08/05/2024 11:10 AM PHYSIOGNOMIST History of Present Illness FOREIGN BODY, plantar RIGHT heel Patient started use of topical salicylic acid to right foot plantar heel lesion daily. Patient states that upon removal of dressing daily lesion seems to be loosening. Patient denies pain and has continued with activity. ---- Patient relates he continued use of topical antibiotic ointment, but states he stopped 3 days ago. Patient relates that callus is again buildup at site and is causing discomfort. ---- Patient states he has continued covering wound and applying mupirocin ointment. Patient states he just started the mupirocin ointment 2 days ago as he had delays in receiving it from the pharmacy. Patient relates wound has healed over but he still has mild tenderness to the area. ---- Patient states he developed a hard ball on the bottom of his heel he did not know what it came from. Patient relates that he thought it was perhaps a wart and that his tried to use a home freezing kit clinic. They relate it did not work and that they have been peeling off layers of the "wart. "He states that when he peels layers of the wart he notices small black pieces of debris from the area. Patient has been offloading the area with donut pad. Patient states he is a well-controlled diabetic. Patient's most recent A1c was 6.0. Patient denies injury Patient states local signs of infection, but patient denies systemic signs of infection Patient states pain currently rated 4/10 on palpation. PHYSICAL EXAM OF THE LOWER EXTREMITY: Vascular (-) ecchymosis, (-) erythema Dorsal pedis pulse, bilateral - 2/4; Posterior tibial pulse, bilateral- 2/4 Capillary Refill time: within normal limits (-) varicosities, (+) pedal hair growth. Neurological (+) sensation with 5.07 Baxley Radha monofilament examination to the most distal lower extremity (-) tinel's sign (-) clonus present Dermatological (+) Plantar lesion shows maceration, upon debridement lesion excised from plantar heel with minimal extension of lesion noted (-) signs of infection (-) abscess (-) purulence (-) ischemic tissue (-) other primary or secondary lesions (+) normal temperature when compared to contralateral limb (+) normal color, tugor, and elasticity Musculoskeletal (+) Minimal pain on palpation of plantar lesion- improved after debridement (-) gross osseous abnormalities 5/5 muscle strength to extrinsic pedal muscle groups (-) evidence of compartment syndrome (-) evidence of deep vein thrombosis (-) Patient to begin use of topical salicylic acid with occlusion of duct tape daily. Assessments: RIGHT foot plantar lesion Treatment - Extensive visit discussing possible pedal complications associated with plantar lesions - Antibiotics - continue topical mupirocin given, detailed instructions provided - Pain -improved, continue offloading pad - Wound -Sharp debridement performed with excision of possible forward substitutes. Performed without complications. - Culture - since there was no purulence, a specimen was unable to be obtained - Vascular - no further studies indicated with healthy bleeding during debridement - Weight bearing - continue use of offloading, continue use of stable shoe gear - Return 1 week Patient advised to report to my clinic or the emergency room immediately with any questions or concerns. Patient Instructions: Discussion: A detailed discussion was provided to the patient with specific reference to etiology, pathology, alternate treatment options, and prognosis. All risks and complications (including side effects) with each treatment/medication alternative were outlined in detail including but not limited to: Pain, swelling, numbness, loss of function, loss of limb, bleeding, hematoma, scarring, failure to relieve condition, surgery, additional/revisional surgery, reflex sympathetic dystrophy, complex regional pain syndrome, reoccurrence of deformity, joint stiffness, flail toe, bone and/or soft tissue infection, blood clots, pulmonary embolism, possible , delayed or non-healing. X-rays, graphs and drawings were all used to assist with patient comprehension when appropriate. All patients questions were answered and stated they fully understood. No guarantee as to results or outcome of treatment was made. I have discussed with the patient or legally responsible person prior to obtaining consent: the risks, potential benefits and drawbacks, significant alternatives, potential for problems related to recuperation, likelihood of success, and possible results of non-treatment, and the patient or the legally responsible person has agreed to proceed. [facility]2025-03-06 13:14:34Upcoming Encounters Health Maintenance Due Date Last Done Comments CT Colonography 1975 Colonoscopy 1975 Colorectal Cancer Screening 1975 FIT-DNA 1975 FIT 1975 FOBT 1975 Lipid Panel 1975 Sigmoidoscopy 1975 Annual Physical 10/22/1978 DTaP/Tdap/Td Vaccines (1 - Tdap) 10/22/1994 Hepatitis B Vaccines (1 of 3 - 19+ 3-dose series) 10/22/1994 Influenza Vaccine (#1) 2024 HIB Vaccines Aged Out No longer eligi ble based on patient's age to complete this topic HPV Vaccines Aged Out No longer eligi ble based on patient's age to complete this topic Hepatitis A Vaccines Aged Out No long er eligible based on patient's age to complete this topic IPV Vaccines Aged Out No longer eligi ble based on patient's age to complete this topic Meningococcal Vaccine Aged Out No pennie david eligible based on patient's age to complete this topic Pneumococcal Vaccine: Pediat rics (0 to 5 Years) and At-Risk Patients (6 to 64 Years) Aged Out No longer eligible b ased on patient's age to complete this topic Rotavirus Vaccines Aged Out No longer eligible based on patient's age to complete this topic [id number] 13:14:34 Diagnosis Abnormal foot finding - Prim kal [id number] 13:14:34 [place] [id number] 13:56:40* Nusrat Bowles, JORY - 07/22/2024 10:40 AM PHYSIOGNOMIST History of Present Illness FOREIGN BODY, plantar RIGHT heel Patient relates he continued use of topical antibiotic ointment, but states he stopped 3 days ago. Patient relates that callus is again buildup at site and is causing discomfort. ---- Patient states he has continued covering wound and applying mupirocin ointment. Patient states he just started the mupirocin ointment 2 days ago as he had delays in receiving it from the pharmacy. Patient relates wound has healed over but he still has mild tenderness to the area. ---- Patient states he developed a hard ball on the bottom of his heel he did not know what it came from. Patient relates that he thought it was perhaps a wart and that his tried to use a home freezing kit clinic. They relate it did not work and that they have been peeling off layers of the "wart. "He states that when he peels layers of the wart he notices small black pieces of debris from the area. Patient has been offloading the area with donut pad. Patient states he is a well-controlled diabetic. Patient's most recent A1c was 6.0. Patient denies injury Patient states local signs of infection, but patient denies systemic signs of infection Patient states pain currently rated 4/10 on palpation. PHYSICAL EXAM OF THE LOWER EXTREMITY: Vascular (+) edema about the puncture wound, (-) ecchymosis, (-) erythema Dorsal pedis pulse, bilateral - 2/4; Posterior tibial pulse, bilateral- 2/4 Capillary Refill time: within normal limits (-) varicosities, (+) pedal hair growth. Neurological (+) sensation with 5.07 Baxley Radha monofilament examination to the most distal lower extremity (-) tinel's sign (-) clonus present Dermatological (+) visual puncture wound site, RIGHT plantar central heel, upon debridement small fragment of firm black granular substance removed -resolved and no sign of foreign body retention (-) signs of infection (-) abscess (-) purulence (-) ischemic tissue (-) other primary or secondary lesions (+) normal temperature when compared to contralateral limb (+) normal color, tugor, and elasticity Musculoskeletal (+) pain on palpation, puncture wound site right plantar heel-improved after debridement (-) gross osseous abnormalities 5/5 muscle strength to extrinsic pedal muscle groups (-) evidence of compartment syndrome (-) evidence of deep vein thrombosis (-) Patient to begin use of topical salicylic acid with occlusion of duct tape daily. Assessments: Retained foreign body right plantar heel Treatment - Extensive visit discussing possible pedal complications associated with prolong retained foreign body - Antibiotics - PRESCRIBED topical mupirocin given, detailed soaking instructions provided -to be continued - Pain -improved, continue offloading pad - Wound -Sharp debridement performed with excision of possible forward substitutes. Performed without complications. - Culture - since there was no purulence, a specimen was unable to be obtained - Xrays - ORDERED again 07/01/2024 - Vascular - no further studies indicated with healthy bleeding during debridement - Weight bearing -continue use of offloading, continue use of stable shoe gear - Return 1 week for wound eval Patient advised to report to my clinic or the emergency room immediately with any questions or concerns. Patient Instructions: Discussion: A detailed discussion was provided to the patient with specific reference to etiology, pathology, alternate treatment options, and prognosis. All risks and complications (including side effects) with each treatment/medication alternative were outlined in detail including but not limited to: Pain, swelling, numbness, loss of function, loss of limb, bleeding, hematoma, scarring, failure to relieve condition, surgery, additional/revisional surgery, reflex sympathetic dystrophy, complex regional pain syndrome, reoccurrence of deformity, joint stiffness, flail toe, bone and/or soft tissue infection, blood clots, pulmonary embolism, possible , delayed or non-healing. X-rays, graphs and drawings were all used to assist with patient comprehension when appropriate. All patients questions were answered and stated they fully understood. No guarantee as to results or outcome of treatment was made. I have discussed with the patient or legally responsible person prior to obtaining consent: the risks, potential benefits and drawbacks, significant alternatives, potential for problems related to recuperation, likelihood of success, and possible results of non-treatment, and the patient or the legally responsible person has agreed to proceed. [facility]IST [id number] 13:56:40Upcoming Encounters Health Maintenance Due Date Last Done Comments CT Colonography 1975 Colonoscopy 1975 Colorectal Cancer Screening 1975 FIT-DNA 1975 FIT 1975 FOBT 1975 Lipid Panel 1975 Sigmoidoscopy 1975 Annual Physical 10/22/1978 DTaP/Tdap/Td Vaccines (1 - Tdap) 10/22/1994 Hepatitis B Vaccines (1 of 3 - 19+ 3-dose series) 10/22/1994 Influenza Vaccine (#1) 2024 HIB Vaccines Aged Out No longer eligi ble based on patient's age to complete this topic HPV Vaccines Aged Out No longer eligi ble based on patient's age to complete this topic Hepatitis A Vaccines Aged Out No long er eligible based on patient's age to complete this topic IPV Vaccines Aged Out No longer eligi ble based on patient's age to complete this topic Meningococcal Vaccine Aged Out No pennie david eligible based on patient's age to complete this topic Pneumococcal Vaccine: Pediat rics (0 to 5 Years) and At-Risk Patients (6 to 64 Years) Aged Out No longer eligible b ased on patient's age to complete this topic Rotavirus Vaccines Aged Out No longer eligible based on patient's age to complete this topic [id number] 13:56:40 Diagnosis Abnormal foot finding - Prim kal [id number] 13:56:40 [id number] 13:56:40* Nusrat Bowles DPM - 07/22/2024 10:40 AM PHYSIOGNOMIST History of Present Illness FOREIGN BODY, plantar RIGHT heel Patient relates he continued use of topical antibiotic ointment, but states he stopped 3 days ago. Patient relates that callus is again buildup at site and is causing discomfort. ---- Patient states he has continued covering wound and applying mupirocin ointment. Patient states he just started the mupirocin ointment 2 days ago as he had delays in receiving it from the pharmacy. Patient relates wound has healed over but he still has mild tenderness to the area. ---- Patient states he developed a hard ball on the bottom of his heel he did not know what it came from. Patient relates that he thought it was perhaps a wart and that his tried to use a home freezing kit clinic. They relate it did not work and that they have been peeling off layers of the "wart. "He states that when he peels layers of the wart he notices small black pieces of debris from the area. Patient has been offloading the area with donut pad. Patient states he is a well-controlled diabetic. Patient's most recent A1c was 6.0. Patient denies injury Patient states local signs of infection, but patient denies systemic signs of infection Patient states pain currently rated 4/10 on palpation. PHYSICAL EXAM OF THE LOWER EXTREMITY: Vascular (+) edema about the puncture wound, (-) ecchymosis, (-) erythema Dorsal pedis pulse, bilateral - 2/4; Posterior tibial pulse, bilateral- 2/4 Capillary Refill time: within normal limits (-) varicosities, (+) pedal hair growth. Neurological (+) sensation with 5.07 Baxley Radha monofilament examination to the most distal lower extremity (-) tinel's sign (-) clonus present Dermatological (+) visual puncture wound site, RIGHT plantar central heel, upon debridement small fragment of firm black granular substance removed -resolved and no sign of foreign body retention (-) signs of infection (-) abscess (-) purulence (-) ischemic tissue (-) other primary or secondary lesions (+) normal temperature when compared to contralateral limb (+) normal color, tugor, and elasticity Musculoskeletal (+) pain on palpation, puncture wound site right plantar heel-improved after debridement (-) gross osseous abnormalities 5/5 muscle strength to extrinsic pedal muscle groups (-) evidence of compartment syndrome (-) evidence of deep vein thrombosis (-) Patient to begin use of topical salicylic acid with occlusion of duct tape daily. Assessments: Retained foreign body right plantar heel Treatment - Extensive visit discussing possible pedal complications associated with prolong retained foreign body - Antibiotics - PRESCRIBED topical mupirocin given, detailed soaking instructions provided -to be continued - Pain -improved, continue offloading pad - Wound -Sharp debridement performed with excision of possible forward substitutes. Performed without complications. - Culture - since there was no purulence, a specimen was unable to be obtained - Xrays - ORDERED again 07/01/2024 - Vascular - no further studies indicated with healthy bleeding during debridement - Weight bearing -continue use of offloading, continue use of stable shoe gear - Return 1 week for wound eval Patient advised to report to my clinic or the emergency room immediately with any questions or concerns. Patient Instructions: Discussion: A detailed discussion was provided to the patient with specific reference to etiology, pathology, alternate treatment options, and prognosis. All risks and complications (including side effects) with each treatment/medication alternative were outlined in detail including but not limited to: Pain, swelling, numbness, loss of function, loss of limb, bleeding, hematoma, scarring, failure to relieve condition, surgery, additional/revisional surgery, reflex sympathetic dystrophy, complex regional pain syndrome, reoccurrence of deformity, joint stiffness, flail toe, bone and/or soft tissue infection, blood clots, pulmonary embolism, possible , delayed or non-healing. X-rays, graphs and drawings were all used to assist with patient comprehension when appropriate. All patients questions were answered and stated they fully understood. No guarantee as to results or outcome of treatment was made. I have discussed with the patient or legally responsible person prior to obtaining consent: the risks, potential benefits and drawbacks, significant alternatives, potential for problems related to recuperation, likelihood of success, and possible results of non-treatment, and the patient or the legally responsible person has agreed to proceed. [place] [id number] 13:56:40Upcoming Encounters Health Maintenance Due Date Last Done Comments CT Colonography 1975 Colonoscopy 1975 Colorectal Cancer Screening 1975 FIT-DNA 1975 FIT 1975 FOBT 1975 Lipid Panel 1975 Sigmoidoscopy 1975 Annual Physical 10/22/1978 DTaP/Tdap/Td Vaccines (1 - Tdap) 10/22/1994 Hepatitis B Vaccines (1 of 3 - 19+ 3-dose series) 10/22/1994 Influenza Vaccine (#1) 2024 HIB Vaccines Aged Out No longer eligi ble based on patient's age to complete this topic HPV Vaccines Aged Out No longer eligi ble based on patient's age to complete this topic Hepatitis A Vaccines Aged Out No long er eligible based on patient's age to complete this topic IPV Vaccines Aged Out No longer eligi ble based on patient's age to complete this topic Meningococcal Vaccine Aged Out No pennie david eligible based on patient's age to complete this topic Pneumococcal Vaccine: Pediat rics (0 to 5 Years) and At-Risk Patients (6 to 64 Years) Aged Out No longer eligible b ased on patient's age to complete this topic Rotavirus Vaccines Aged Out No longer eligible based on patient's age to complete this topic [facility]Rcgipuj9785-48-48 13:56:40 Diagnosis Abnormal foot finding - Prim kal [facility]Uihqnwk0735-49-31 13:56:40 [facility]Hqohzxk1538-62-91 15:59:47* Nusrat Bowles, JORY - 07/01/2024 11:00 AM PHYSIOGNOMIST History of Present Illness FOREIGN BODY, plantar RIGHT heel Patient states he has continued covering wound and applying mupirocin ointment. Patient states he just started the mupirocin ointment 2 days ago as he had delays in receiving it from the pharmacy. Patient relates wound has healed over but he still has mild tenderness to the area. ---- Patient states he developed a hard ball on the bottom of his heel he did not know what it came from. Patient relates that he thought it was perhaps a wart and that his tried to use a home freezing kit clinic. They relate it did not work and that they have been peeling off layers of the "wart. "He states that when he peels layers of the wart he notices small black pieces of debris from the area. Patient has been offloading the area with donut pad. Patient states he is a well-controlled diabetic. Patient's most recent A1c was 6.0. Patient denies injury Patient states local signs of infection, but patient denies systemic signs of infection Patient states pain currently rated 4/10 on palpation. PHYSICAL EXAM OF THE LOWER EXTREMITY: Vascular (+) edema about the puncture wound, (-) ecchymosis, (-) erythema Dorsal pedis pulse, bilateral - 2/4; Posterior tibial pulse, bilateral- 2/4 Capillary Refill time: within normal limits (-) varicosities, (+) pedal hair growth. Neurological (+) sensation with 5.07 Baxley Radha monofilament examination to the most distal lower extremity (-) tinel's sign (-) clonus present Dermatological (+) visual puncture wound site, RIGHT plantar central heel, upon debridement small fragment of firm black granular substance removed -resolved and no sign of foreign body retention (-) signs of infection (-) abscess (-) purulence (-) ischemic tissue (-) other primary or secondary lesions (+) normal temperature when compared to contralateral limb (+) normal color, tugor, and elasticity Musculoskeletal (+) pain on palpation, puncture wound site right plantar heel-improved after debridement (-) gross osseous abnormalities 5/5 muscle strength to extrinsic pedal muscle groups (-) evidence of compartment syndrome (-) evidence of deep vein thrombosis Assessments: Retained foreign body right plantar heel Treatment - Extensive visit discussing possible pedal complications associated with prolong retained foreign body - Antibiotics - PRESCRIBED topical mupirocin given, detailed soaking instructions provided -to be continued - Pain -improved, continue offloading pad - Wound -Sharp debridement performed with excision of possible forward substitutes. Performed without complications. - Culture - since there was no purulence, a specimen was unable to be obtained - Xrays - ORDERED again 07/01/2024 - Vascular - no further studies indicated with healthy bleeding during debridement - Weight bearing -continue use of offloading, continue use of stable shoe gear - Return 1 week for wound eval Patient advised to report to my clinic or the emergency room immediately with any questions or concerns. Patient Instructions: Discussion: A detailed discussion was provided to the patient with specific reference to etiology, pathology, alternate treatment options, and prognosis. All risks and complications (including side effects) with each treatment/medication alternative were outlined in detail including but not limited to: Pain, swelling, numbness, loss of function, loss of limb, bleeding, hematoma, scarring, failure to relieve condition, surgery, additional/revisional surgery, reflex sympathetic dystrophy, complex regional pain syndrome, reoccurrence of deformity, joint stiffness, flail toe, bone and/or soft tissue infection, blood clots, pulmonary embolism, possible , delayed or non-healing. X-rays, graphs and drawings were all used to assist with patient comprehension when appropriate. All patients questions were answered and stated they fully understood. No guarantee as to results or outcome of treatment was made. I have discussed with the patient or legally responsible person prior to obtaining consent: the risks, potential benefits and drawbacks, significant alternatives, potential for problems related to recuperation, likelihood of success, and possible results of non-treatment, and the patient or the legally responsible person has agreed to proceed. [facility]OGNOMIST [id number] 15:59:47Upcoming Encounters Health Maintenance Due Date Last Done Comments CT Colonography 1975 Colonoscopy 1975 Colorectal Cancer Screening 1975 FIT-DNA 1975 FIT 1975 FOBT 1975 Lipid Panel 1975 Sigmoidoscopy 1975 Annual Physical 10/22/1978 DTaP/Tdap/Td Vaccines (1 - Tdap) 10/22/1994 Hepatitis B Vaccines (1 of 3 - 19+ 3-dose series) 10/22/1994 Influenza Vaccine (#1) 2024 HIB Vaccines Aged Out No longer eligi ble based on patient's age to complete this topic HPV Vaccines Aged Out No longer eligi ble based on patient's age to complete this topic Hepatitis A Vaccines Aged Out No long er eligible based on patient's age to complete this topic IPV Vaccines Aged Out No longer eligi ble based on patient's age to complete this topic Meningococcal Vaccine Aged Out No pennie david eligible based on patient's age to complete this topic Pneumococcal Vaccine: Pediat rics (0 to 5 Years) and At-Risk Patients (6 to 64 Years) Aged Out No longer eligible b ased on patient's age to complete this topic Rotavirus Vaccines Aged Out No longer eligible based on patient's age to complete this topic [facility]gkkzaj9813-25-03 15:59:47 Diagnosis Abnormal foot finding - Prim kal [facility]Kjzxzdu8273-16-25 15:59:47 [id number] 15:59:47* Nusrat Bowles DPM - 07/01/2024 11:00 AM PHYSIOGNOMIST History of Present Illness FOREIGN BODY, plantar RIGHT heel Patient states he has continued covering wound and applying mupirocin ointment. Patient states he just started the mupirocin ointment 2 days ago as he had delays in receiving it from the pharmacy. Patient relates wound has healed over but he still has mild tenderness to the area. ---- Patient states he developed a hard ball on the bottom of his heel he did not know what it came from. Patient relates that he thought it was perhaps a wart and that his tried to use a home freezing kit clinic. They relate it did not work and that they have been peeling off layers of the "wart. "He states that when he peels layers of the wart he notices small black pieces of debris from the area. Patient has been offloading the area with donut pad. Patient states he is a well-controlled diabetic. Patient's most recent A1c was 6.0. Patient denies injury Patient states local signs of infection, but patient denies systemic signs of infection Patient states pain currently rated 4/10 on palpation. PHYSICAL EXAM OF THE LOWER EXTREMITY: Vascular (+) edema about the puncture wound, (-) ecchymosis, (-) erythema Dorsal pedis pulse, bilateral - 2/4; Posterior tibial pulse, bilateral- 2/4 Capillary Refill time: within normal limits (-) varicosities, (+) pedal hair growth. Neurological (+) sensation with 5.07 Baxley Radha monofilament examination to the most distal lower extremity (-) tinel's sign (-) clonus present Dermatological (+) visual puncture wound site, RIGHT plantar central heel, upon debridement small fragment of firm black granular substance removed -resolved and no sign of foreign body retention (-) signs of infection (-) abscess (-) purulence (-) ischemic tissue (-) other primary or secondary lesions (+) normal temperature when compared to contralateral limb (+) normal color, tugor, and elasticity Musculoskeletal (+) pain on palpation, puncture wound site right plantar heel-improved after debridement (-) gross osseous abnormalities 5/5 muscle strength to extrinsic pedal muscle groups (-) evidence of compartment syndrome (-) evidence of deep vein thrombosis Assessments: Retained foreign body right plantar heel Treatment - Extensive visit discussing possible pedal complications associated with prolong retained foreign body - Antibiotics - PRESCRIBED topical mupirocin given, detailed soaking instructions provided -to be continued - Pain -improved, continue offloading pad - Wound -Sharp debridement performed with excision of possible forward substitutes. Performed without complications. - Culture - since there was no purulence, a specimen was unable to be obtained - Xrays - ORDERED again 07/01/2024 - Vascular - no further studies indicated with healthy bleeding during debridement - Weight bearing -continue use of offloading, continue use of stable shoe gear - Return 1 week for wound eval Patient advised to report to my clinic or the emergency room immediately with any questions or concerns. Patient Instructions: Discussion: A detailed discussion was provided to the patient with specific reference to etiology, pathology, alternate treatment options, and prognosis. All risks and complications (including side effects) with each treatment/medication alternative were outlined in detail including but not limited to: Pain, swelling, numbness, loss of function, loss of limb, bleeding, hematoma, scarring, failure to relieve condition, surgery, additional/revisional surgery, reflex sympathetic dystrophy, complex regional pain syndrome, reoccurrence of deformity, joint stiffness, flail toe, bone and/or soft tissue infection, blood clots, pulmonary embolism, possible , delayed or non-healing. X-rays, graphs and drawings were all used to assist with patient comprehension when appropriate. All patients questions were answered and stated they fully understood. No guarantee as to results or outcome of treatment was made. I have discussed with the patient or legally responsible person prior to obtaining consent: the risks, potential benefits and drawbacks, significant alternatives, potential for problems related to recuperation, likelihood of success, and possible results of non-treatment, and the patient or the legally responsible person has agreed to proceed. [facility]:59:47Upcoming Encounters Health Maintenance Due Date Last Done Comments CT Colonography 1975 Colonoscopy 1975 Colorectal Cancer Screening 1975 FIT-DNA 1975 FIT 1975 FOBT 1975 Lipid Panel 1975 Sigmoidoscopy 1975 Annual Physical 10/22/1978 DTaP/Tdap/Td Vaccines (1 - Tdap) 10/22/1994 Hepatitis B Vaccines (1 of 3 - 19+ 3-dose series) 10/22/1994 Influenza Vaccine (#1) 2024 HIB Vaccines Aged Out No longer eligi ble based on patient's age to complete this topic HPV Vaccines Aged Out No longer eligi ble based on patient's age to complete this topic Hepatitis A Vaccines Aged Out No long er eligible based on patient's age to complete this topic IPV Vaccines Aged Out No longer eligi ble based on patient's age to complete this topic Meningococcal Vaccine Aged Out No pennie david eligible based on patient's age to complete this topic Pneumococcal Vaccine: Pediat rics (0 to 5 Years) and At-Risk Patients (6 to 64 Years) Aged Out No longer eligible b ased on patient's age to complete this topic Rotavirus Vaccines Aged Out No longer eligible based on patient's age to complete this topic [id number] Diagnosis Abnormal foot finding - Prim [facility]2025-01-30 15:59:47 [place] [id number] 05:59:50 Diagnosis Abnormal foot finding - Prim [facility]2025-01-17 05:59:50 [id number] 05:59:50* Nusrat Bowles, JORY - 06/17/2024 12:30 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 Patient relates that he thought it was perhaps a wart and that his tried to use a home freezing kit clinic. They relate it did not work and that they have been peeling off layers of the "wart. "He states that when he peels layers of the wart he notices small black pieces of debris from the area. Patient has been offloading the area with donut pad. Patient states he is a well-controlled diabetic. Patient's most recent A1c was 6.0. Patient denies injury Patient states local signs of infection, but patient denies systemic signs of infection Patient states pain currently rated 4/10 on palpation. PHYSICAL EXAM OF THE LOWER EXTREMITY: Vascular (+) edema about the puncture wound, (-) ecchymosis, (-) erythema Dorsal pedis pulse, bilateral - 2/4; Posterior tibial pulse, bilateral- 2/4 Capillary Refill time: within normal limits (-) varicosities, (+) pedal hair growth. Neurological (+) sensation with 5.07 Baxley Radha monofilament examination to the most distal lower extremity (-) tinel's sign (-) clonus present Dermatological (+) visual puncture wound site, RIGHT plantar central heel, upon debridement small fragment of firm black granular substance removed (-) signs of infection (-) abscess (-) purulence (-) ischemic tissue (-) other primary or secondary lesions (+) normal temperature when compared to contralateral limb (+) normal color, tugor, and elasticity Musculoskeletal (+) pain on palpation, puncture wound site right plantar heel-improved after debridement (-) gross osseous abnormalities 5/5 muscle strength to extrinsic pedal muscle groups (-) evidence of compartment syndrome (-) evidence of deep vein thrombosis Assessments: Retained foreign body right plantar heel Treatment - Extensive visit discussing possible pedal complications associated with prolong retained foreign body - Antibiotics - PRESCRIBED topical mupirocin given, detailed soaking instructions provided. - Pain -improved, continue offloading pad - Wound -Sharp debridement performed with excision of possible forward substitutes. Performed without complications. - Culture - since there was no purulence, a specimen was unable to be obtained - Xrays - ORDERED - Vascular - no further studies indicated with healthy bleeding during debridement - Weight bearing -continue use of offloading, continue use of stable shoe gear - Return 1 week for wound eval Patient advised to report to my clinic or the emergency room immediately with any questions or concerns. Patient Instructions: Discussion: A detailed discussion was provided to the patient with specific reference to etiology, pathology, alternate treatment options, and prognosis. All risks and complications (including side effects) with each treatment/medication alternative were outlined in detail including but not limited to: Pain, swelling, numbness, loss of function, loss of limb, bleeding, hematoma, scarring, failure to relieve condition, surgery, additional/revisional surgery, reflex sympathetic dystrophy, complex regional pain syndrome, reoccurrence of deformity, joint stiffness, flail toe, bone and/or soft tissue infection, blood clots, pulmonary embolism, possible , delayed or non-healing. X-rays, graphs and drawings were all used to assist with patient comprehension when appropriate. All patients questions were answered and stated they fully understood. No guarantee as to results or outcome of treatment was made. I have discussed with the patient or legally responsible person prior to obtaining consent: the risks, potential benefits and drawbacks, significant alternatives, potential for problems related to recuperation, likelihood of success, and possible results of non-treatment, and the patient or the legally responsible person has agreed to proceed. TNEY Madden2025-01-17 05:59:50Upcoming Encounters Health Maintenance Due Date Last Done Comments CT Colonography 1975 Colonoscopy 1975 Colorectal Cancer Screening 1975 FIT-DNA 1975 FIT 1975 FOBT 1975 Lipid Panel 1975 Sigmoidoscopy 1975 Annual Physical 10/22/1978 DTaP/Tdap/Td Vaccines (1 - Tdap) 10/22/1994 Hepatitis B Vaccines (1 of 3 - 19+ 3-dose series) 10/22/1994 Influenza Vaccine (#1) 2024 HIB Vaccines Aged Out No longer eligi ble based on patient's age to complete this topic HPV Vaccines Aged Out No longer eligi ble based on patient's age to complete this topic Hepatitis A Vaccines Aged Out No long er eligible based on patient's age to complete this topic IPV Vaccines Aged Out No longer eligi ble based on patient's age to complete this topic Meningococcal Vaccine Aged Out No pennie david eligible based on patient's age to complete this topic Pneumococcal Vaccine: Pediat rics (0 to 5 Years) and At-Risk Patients (6 to 64 Years) Aged Out No longer eligible b ased on patient's age to complete this topic Rotavirus Vaccines Aged Out No longer eligible based on patient's age to complete this topic [facility]
[2024-09-19] MEDS ORDERED: ONDANSETRON 4 MG/2 ML VIAL ONE (02:52)
[2024-09-19] MEDS ORDERED: CEFTRIAXONE 1000 MG/VIAL ONE (02:52)
[2024-09-19] MEDS ORDERED: KETOROLAC 30 MG/ML INJ ONE (02:53)
[2024-09-19] MEDS ORDERED: MORPHINE 4 MG/ML SYR ONE (02:53)
[2024-09-19] MEDS ORDERED: droPERidol 5 MG/2 ML VIAL ONE (02:53)
[2024-09-19] MEDS ORDERED: NA CHLORIDE 0.9% 1,000 ML ONE ×2 (02:54→06:31)
[2024-09-19] MEDS ORDERED: NA CHLORIDE 0.9% 50 ML ONE (02:55)
[2024-09-19 03:02] LABS: Absolute Eosinophils 0.3 K/uL (0-0.5); Absolute Lymphocytes (CBC) 2.2 K/uL (0.7-4.9); Absolute Neutrophil 7.8 K/uL (1.8-8.0); Basophils % 0.4 % (0-1.3); Eosinophils % 2.5 % (0-4.4); Hematocrit 44.6 % (39.6-49.0); Hemoglobin 15.5 g/dL (13.6-17.9); Lymphocytes % 19.4 % (15.3-44.8); MCH 31.8 pg (27.0-35.0); MCHC 34.6 g/dL (32.0-36.0); MCV 91.7 fL (80-100); MPV 9.6 fL (7.6-11.3); Monocytes % 8.8 % (3.3-12.3); Neutrophils % 68.9 % (41.7-73.7); Platelets 242 thou/uL (152-406); RBC Red Blood Cell Count 4.86 M/uL (4.33-5.43); Red Cell Distribution Width 14.1 % (12.1-15.2)
[2024-09-19 03:03] LABS: Specific Gravity 1.006 (1.005-1.030); Sqamous Epithelial None Seen /HPF (None Seen); Urine Bacteria <20 /HPF (<20); Urine Bilirubin NEGATIVE (Negative); Urine Blood 2+ (Negative); Urine Clarity Extremely Turbid (Clear); Urine Color Light-Yellow (Yellow); Urine Culture Reflex Order REFLEXED; Urine Glucose NEGATIVE (Negative); Urine Ketones NEGATIVE (Negative); Urine Microscopic Reflex YN ORDER UMIC; Urine Mucus Slight /HPF (None Seen); Urine Nitrite NEGATIVE (Negative); Urine Protein TRACE (Negative); Urine RBC 21-50 /HPF (None Seen); Urine Urobilinogen Normal (Normal); Urine WBC >50 /HPF (<5)
[2024-09-19 03:16] LABS: Albumin 4.1 g/dL (3.4-5.0); Anion Gap 9.7 mEq/L (5.0-15.0); Bilirubin Total 1.3 mg/dL (0.2-1.0); Globulin 4.3 g/dL (2.3-3.5); Potassium 3.7 mEq/L (3.5-5.1); Protein, Total 8.4 g/dL (6.4-8.2)
--- NOTE | 2024-09-19 06:20 | ER ---
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 Coronavirus vc1 screen: Client denies travel out of the [place] in the last 14 days. At this time, the client does not indicate any symptoms associated with coronavirus-19. Ebola Screen: Patient negative for fever greater than or equal to 101.5 degrees Fahrenheit, and additional compatible Ebola Virus Disease symptoms Patient denies exposure to infectious person. Patient denies travel to an Ebola-affected area in the 21 days before illness onset. No symptoms or risks identified at this time. Initial Sepsis Screen: Does the patient meet any 2 criteria? No. Patient's initial sepsis screen is negative. Does the patient have a suspected source of infection? No. Patient's initial sepsis screen is negative. Risk Assessment: Do you want to hurt yourself or someone else? Patient reports no desire to harm self or others. Onset of symptoms was September 18, 2024. 01:13 Method Of Arrival: Ambulatory vc1 01:13 Acuity: RAJAN 3 vc1 01:14 Care prior to arrival: Medication(s) given: flagyl and ciprofloxacin started at 2130. vc1 Activity prior to arrival: None. Mechanism of Injury: No Mechanism of Injury. 01:16 Chief complaint: Patient states: also complains of pressure like needing to urinate vc1 then burning with urination then pain is gone. Triage Assessment: 01:17 General: Appears in no apparent distress. uncomfortable, Behavior is calm, cooperative, vc1 appropriate for age. Pain: Complains of pain in suprapubic area Pain does not radiate. Pain currently is 7 out of 10 on a pain scale. Quality of pain is described as burning, pressure. EENT: No deficits noted. No signs and/or symptoms were reported regarding the EENT system. Neuro: Level of Consciousness is awake, alert, obeys commands, Oriented to person, place, time, situation, Appropriate for age. Cardiovascular: Capillary refill < 3 seconds Patient's skin is warm and dry. Respiratory: Airway is patent Respiratory effort is even, unlabored, Respiratory pattern is regular, symmetrical. GI: Abdomen is flat, non-distended, Reports lower abdominal pain, epigastric pain. : Reports burning with urination, pain in right in left in bilateral in suprapubic area lower quadrant(s). Derm: Skin is intact, is healthy with good turgor, Skin is dry, Skin is normal, Skin temperature is warm. Musculoskeletal: Circulation, motion, and sensation intact. Range of motion: intact in all extremities. Historical: - Allergies: 01:15 cefoxitin; vc1 01:15 Mefoxin; vc1 - PMHx: 01:15 diabetes mellitus; Diverticulitis; Hypertensive disorder; vc1 - PSHx: 01:15 None; vc1 - Immunization history:: Client reports having NOT received the Covid vaccine. Flu vaccine is not up to date. - Infectious Disease History:: Denies. - Social history:: Smoking status: Patient reports the use of cigarette tobacco products, little over 1/2 PPD. - Family history:: not pertinent. Screenin:17 [facility] ED Fall Risk Assessment (Adult) History of falling in the last 3 months, vc1 including since admission No falls in past 3 months (0 pts) Confusion or Disorientation No (0 pts) Intoxicated or Sedated No (0 pts) Impaired Gait No (0 pts) Mobility Assist Device Used No (0 pt) Altered Elimination Yes (1 pt) Score/Fall Risk Level 0 - 2 = Low Risk Oriented to surroundings, Maintained a safe environment, Educated pt \T\ family on fall prevention, incl call for assistance when getting out of bed. Abuse screen: Denies threats or abuse. Nutritional screening: No deficits noted. Tuberculosis screening: No symptoms or risk factors identified. Assessment: 03:11 General: Appears in no apparent distress. Pain: Pain currently is 7 out of 10 on a pain kd4 scale. Neuro: No deficits noted. Cardiovascular: Denies chest pain. Respiratory: Denies shortness of breath. GI: Bowel sounds present X 4 quads. Abd is non tender Reports lower abdominal pain. : No deficits noted. 06:39 General: Patient request to go outside to his car, explained to patient that it is kd4 against hospital policicy because he has an iv access, and not on only that his transfer diagnosis require him to be monitor . Explained to patient the only way will be to sign out AMA, Spoke with rn hemodialysis charge who states he cannot go outside and that it is not safe even for patient, patient understood , go back in bed but unhappy.. 07:35 Reassessment: REPORT TO ANASTASIIA LATIF AT [facility]. TRANSPORT PENDING. bp 08:23 Reassessment: EMS AT B/S FOR TRANPORT. bp Vital Signs: 01:13 Weight 83.91 kg; Height 5 ft. 8 in. ; Pain 7/10; vc1 01:18 BP 128 / 95; Pulse 73; Resp 16; Temp 98.6; Pulse Ox 99% ; vc1 04:54 Pulse Ox 96% on R/A; kd4 05:26 BP 96 / 75; Pulse 58; Resp 17; Temp 97.7(O); Pulse Ox 99% on R/A; Pain 0/10; kd4 05:55 BP 96 / 77; Pulse 61; Resp 17; Temp 98.1; Pulse Ox 97% on R/A; Pain 0/10; kd4 06:38 BP 118 / 89; Pulse 63; Resp 18; Pulse Ox 99% ; Pain 0/10; kd4 08:23 BP 117 / 84; Pulse 58; Resp 16; Pulse Ox 98% ; bp 01:13 Body Mass Index 28.13 (83.91 kg, 172.72 cm) vc1 01:13 Pain Scale: Adult vc1 05:26 Pain Scale: Adult kd4 05:55 Pain Scale: Adult kd4 06:38 Pain Scale: Adult kd4 [place] Coma Score: 03:11 Eye Response: spontaneous(4). Motor Response: obeys commands(6). Verbal Response: kd4 oriented(5). Total: 15. 09/20 04:14 Eye Response: spontaneous(4). Motor Response: obeys commands(6). Verbal Response: sp4 oriented(5). Total: 15. ED Course: 09/19 00:37 Patient arrived in ED. jj6 00:56 Jacky Pyle MD is Attending Physician. sp4 01:14 Triage completed. vc1 01:16 Arm band placed on right wrist. vc1 02:33 Dahissa, Karim, RN is Primary Nurse. kd4 03:11 Patient has correct armband on for positive identification. Bed in low position. Call kd4 light in reach. Side rails up X 1. 03:11 Inserted saline lock: 20 gauge in right antecubital area, using aseptic technique. kd4 03:36 CT Abd/Pelvis - IV Contrast Only In Process Unspecified. EDMS 06:26 Called [facility] no answer. hw 06:31 Called [facility] transfer [place] no answer. hw 06:43 called [facility] no answer. sp 06:49 called [facility] no answer. sp 06:53 called [facility] transfer center talked to Frantz. sp 07:[id number] Greg Llanes accepted to [facility] 0709 Admin approval Frantz Hathaway report sp [phone] to [facility]. 0749 called [facility] talked to Alfie on another transfer. 0749 called [facility] talked to Missy. 07:13 Primary Nurse role handed off by Nato Tan, SALOMON bp 07:13 Solo Colon, RN is Primary Nurse. bp 07:31 Provided Education on: NA. bp 07:31 No provider procedures requiring assistance completed. Patient transferred, IV remains bp in place. Administered Medications: 03:09 Drug: Ondansetron IVP 4 mg IVP once; over 2 minutes Route: IVP; Site: right antecubital;kd4 08:25 Follow up: Response: No adverse reaction bp 03:09 Drug: NS 0.9% IV 1000 ml IV at 1 bolus Per protocol; to be given as a bolus over 60 kd4 minutes Route: IV; Rate: 1 bolus; Site: right antecubital; 08:25 Follow up: IV Status: Completed infusion bp 03:10 Drug: morphine IVP or IV 4 mg IVP once over 4 mins Route: IVP; Infused Over: 4 mins; kd4 Site: right antecubital; 06:27 Follow up: Response: No adverse reaction kd4 03:10 Drug: Ketorolac IVP 30 mg IVP once Route: IVP; Site: right antecubital; kd4 06:27 Follow up: Response: No adverse reaction kd4 03:10 Drug: Droperidol IVP 2.5 mg IVP once Route: IVP; Site: right antecubital; kd4 06:27 Follow up: Response: No adverse reaction kd4 03:10 Drug: Rocephin - Rocephin (cefTRIAXone) IVPB 1 grams IVPB once over 30 mins; (mix in 50 kd4 mL NS) Route: IVPB; Infused Over: 30 mins; Site: right antecubital; 07:32 Follow up: IV Status: Completed infusion bp 06:30 Drug: metroNIDAZOLE IVPB 500 mg 100 ml IVPB at 200 ml/hr once over 30 mins Volume: 100 kd4 ml; Route: IVPB; Rate: 200 ml/hr; Infused Over: 30 mins; Site: right antecubital; 07:32 Follow up: IV Status: Completed infusion bp 06:38 Drug: NS 0.9% IV 1000 ml IV at 1000 ml once; to be given as a bolus over 60 minutes kd4 Route: IV; Rate: 1000 ml; Site: right antecubital; 07:32 Follow up: IV Status: Completed infusion bp Medication: 01:17 VIS not applicable for this client. vc1 Outcome: 06:20 ER care complete, transfer ordered by MD. hunt 08:24 Transferred by ground EMS to [facility], Transfer form bp completed. 08:24 Condition: stable 08:24 Instructed on the need for transfer, 08:24 Patient left the ED. bp Signatures: Dispatcher [employer] EDMS Sasha Short Brian, RN RN bp Lashon Boggs jj6 Olive Haq RN RN vc1 Jacky Pyle MD MD sp4 Nato Tan RN RN kd4 Shelby Lofton
--- NOTE | 2024-09-19 06:20 | EDPHYS ---
Physician Documentation [facility] Name: Himanshu Brown Age: 48 yrs Sex: Male : 1975 Arrival Date: 09/19/2024 Time: 00:36 Bed 14 Private MD: ED Physician Jacky Pyle HPI: 09/19 06:12 This 48 yrs old Male presents to ER via Ambulatory with complaints of sp4 Abdominal Pain, PT has h/o diverticulitus. 09/20 04:14 Patient presents with acute lower abdominal pain similar to prior episode of sp4 diverticulitis. Historical: - Allergies: 09/19 01:15 cefoxitin; vc1 01:15 Mefoxin; vc1 - PMHx: 01:15 diabetes mellitus; Diverticulitis; Hypertensive disorder; vc1 - PSHx: 01:15 None; vc1 - Immunization history:: Client reports having NOT received the Covid vaccine. Flu vaccine is not up to date. - Infectious Disease History:: Denies. - Social history:: Smoking status: Patient reports the use of cigarette tobacco products, little over 1/2 PPD. - Family history:: not pertinent. ROS: 09/20 04:14 Constitutional: Negative for fever, chills, and weight loss, positive lower abdominal sp4 pain. All other systems are negative, Exam: 04:14 Constitutional: This is a well developed, well nourished patient who is awake, alert, sp4 and in no acute distress. Head/Face: Normocephalic, atraumatic. Eyes: Pupils equal round and reactive to light, extra-ocular motions intact. Lids and lashes normal. Conjunctiva and sclera are not injected. Cornea within normal limits. Periorbital areas with no swelling, redness, or edema. ENT: Nares patent. No nasal discharge, no septal abnormalities noted. Tympanic membranes are normal and external auditory canals are clear. Oropharynx with no redness, swelling, or masses, exudates, or evidence of obstruction, uvula midline. Mucous membranes moist. Neck: Trachea midline, no thyromegaly or masses palpated, and no cervical lymphadenopathy. Supple, full range of motion without nuchal rigidity, or vertebral point tenderness. Chest/axilla: Normal chest wall appearance and motion. Nontender with no deformity. No lesions are appreciated. Cardiovascular: Regular rate and rhythm with a normal S1 and S2. No gallops, murmurs, or rubs. Normal PMI, no JVD. No pulse deficits. Respiratory: Lungs have equal breath sounds bilaterally, clear to auscultation and percussion. No rales, rhonchi or wheezes noted. No increased work of breathing, no retractions or nasal flaring. Abdomen/GI: Soft, with normal bowel sounds. No distension or tympany. Positive bilateral lower abdominal tenderness with rebound tenderness Back: No spinal tenderness. No costovertebral tenderness. Skin: Warm, dry with normal turgor. Normal color with no rashes, no lesions, and no evidence of cellulitis. MS/ Extremity: Pulses equal, no cyanosis. Neurovascular intact. Full, normal range of motion. Neuro: Awake and alert, GCS 15, oriented to person, place, time, and situation. Cranial nerves II-XII grossly intact. Motor strength 5/5 in all extremities. Sensory grossly intact. Psych: Awake, alert, with orientation to person, place and time. Behavior, mood, and affect are within normal limits Vital Signs: 09/19 01:13 Weight 83.91 kg; Height 5 ft. 8 in. ; Pain 7/10; vc1 01:18 BP 128 / 95; Pulse 73; Resp 16; Temp 98.6; Pulse Ox 99% ; vc1 04:54 Pulse Ox 96% on R/A; kd4 05:26 BP 96 / 75; Pulse 58; Resp 17; Temp 97.7(O); Pulse Ox 99% on R/A; Pain 0/10; kd4 05:55 BP 96 / 77; Pulse 61; Resp 17; Temp 98.1; Pulse Ox 97% on R/A; Pain 0/10; kd4 06:38 BP 118 / 89; Pulse 63; Resp 18; Pulse Ox 99% ; Pain 0/10; kd4 08:23 BP 117 / 84; Pulse 58; Resp 16; Pulse Ox 98% ; bp 01:13 Body Mass Index 28.13 (83.91 kg, 172.72 cm) vc1 01:13 Pain Scale: Adult vc1 05:26 Pain Scale: Adult kd4 05:55 Pain Scale: Adult kd4 06:38 Pain Scale: Adult kd4 [place] Coma Score: 03:11 Eye Response: spontaneous(4). Motor Response: obeys commands(6). Verbal Response: kd4 oriented(5). Total: 15. 09/20 04:14 Eye Response: spontaneous(4). Motor Response: obeys commands(6). Verbal Response: sp4 oriented(5). Total: 15. MDM: 09/19 01:13 Medical Screening Exam initiated sp4 06:12 ED course: FINDINGS: Lung bases: Unremarkable. No mass. No consolidation. ABDOMEN: sp4 Liver: Hepatomegaly with diffuse hepatic steatosis. Gallbladder and bile ducts: Unremarkable. No calcified stones. No ductal dilation. Pancreas: Unremarkable. No mass. No ductal dilation. Spleen: Unremarkable. No splenomegaly. Adrenals: Unremarkable. No mass. Kidneys and ureters: Unremarkable. No solid mass. No hydronephrosis. Stomach and bowel: Scattered colonic diverticula. No obstruction. No mucosal thickening. PELVIS: Appendix: No findings to suggest acute appendicitis. Bladder: There is irregular bladder wall thickening posteriorly with some irregular soft tissue density and internal locules of gas/air. There are adjacent sigmoid diverticula with mild fat stranding. Reproductive: Unremarkable as visualized. ABDOMEN and PELVIS: Intraperitoneal space: Unremarkable. No free air. No significant fluid collection. Bones/joints: No acute fracture. No dislocation. Soft tissues: See above. Vasculature: Unremarkable. No abdominal aortic aneurysm. Lymph nodes: Unremarkable. No enlarged lymph nodes. IMPRESSION: 1. Scattered colonic diverticula. 2. There is irregular bladder wall thickening posteriorly with some irregular soft tissue density and internal locules of gas/air. There are adjacent sigmoid diverticula with mild fat stranding. Findings are concerning for diverticulitis with perforation and/or developing abscess. Recommend follow-up imaging to resolution to exclude bladder neoplasm. 3. Hepatomegaly with diffuse hepatic steatosis.. 09/20 04:14 Differential diagnosis: appendicitis, bowel obstruction, coronary artery disease, sp4 gastritis, Hepatitis, Irritable bowel syndrome. Data reviewed: vital signs, nurses notes, old medical records, lab test result(s), radiologic studies. Consideration of Admission/Observation Escalation of care including admission/observation considered. Management of patient was discussed with the following: Support Dba: Discussed with Dr. Diaz who advised transfer for colorectal surgery consult.. ED course: Perforated diverticulitis, patient stable for ground EMS transfer to [facility]. [facility] did not accept patient.. 09/19 00:56 Order name: CBC with Diff; Complete Time: 06:07 sp4 09/19 00:56 Order name: CMP; Complete Time: 06:07 sp4 09/19 00:56 Order name: Lipase; Complete Time: 06:07 sp4 09/19 00:56 Order name: Urinalysis w/ reflexes; Complete Time: 06:07 sp4 09/19 03:07 Order name: Urine Culture EDOH 09/19 00:56 Order name: CT Abd/Pelvis - IV Contrast Only sp4 09/19 00:56 Order name: IV Saline Lock; Complete Time: 05:53 sp4 09/19 00:56 Order name: Labs collected and sent; Complete Time: 05:53 sp4 Administered Medications: 09/19 03:09 Drug: Ondansetron IVP 4 mg IVP once; over 2 minutes Route: IVP; Site: right antecubital;kd4 08:25 Follow up: Response: No adverse reaction bp 03:09 Drug: NS 0.9% IV 1000 ml IV at 1 bolus Per protocol; to be given as a bolus over 60 kd4 minutes Route: IV; Rate: 1 bolus; Site: right antecubital; 08:25 Follow up: IV Status: Completed infusion bp 03:10 Drug: morphine IVP or IV 4 mg IVP once over 4 mins Route: IVP; Infused Over: 4 mins; kd4 Site: right antecubital; 06:27 Follow up: Response: No adverse reaction kd4 03:10 Drug: Ketorolac IVP 30 mg IVP once Route: IVP; Site: right antecubital; kd4 06:27 Follow up: Response: No adverse reaction kd4 03:10 Drug: Droperidol IVP 2.5 mg IVP once Route: IVP; Site: right antecubital; kd4 06:27 Follow up: Response: No adverse reaction kd4 03:10 Drug: Rocephin - Rocephin (cefTRIAXone) IVPB 1 grams IVPB once over 30 mins; (mix in 50 kd4 mL NS) Route: IVPB; Infused Over: 30 mins; Site: right antecubital; 07:32 Follow up: IV Status: Completed infusion bp 06:30 Drug: metroNIDAZOLE IVPB 500 mg 100 ml IVPB at 200 ml/hr once over 30 mins Volume: 100 kd4 ml; Route: IVPB; Rate: 200 ml/hr; Infused Over: 30 mins; Site: right antecubital; 07:32 Follow up: IV Status: Completed infusion bp 06:38 Drug: NS 0.9% IV 1000 ml IV at 1000 ml once; to be given as a bolus over 60 minutes kd4 Route: IV; Rate: 1000 ml; Site: right antecubital; 07:32 Follow up: IV Status: Completed infusion bp Disposition Summary: 09/19/24 06:20 Transfer Ordered Notes: Reason: Higher level of care sp4 Condition: Stable sp4 Problem: new sp4 Symptoms: have improved sp4 Transfer Location: [facility](09/19/24 07:11) sp4 Accepting Physician: [facility] attending Dr. 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 EDMS EDMS 00:57 00:57 COMPREHENSIVE METABOLIC PANEL+C.LAB.BRZ ordered. EDMS EDMS 00:57 00:57 LIPASE+C.LAB.BRZ ordered. EDMS EDMS 00:57 00:57 Urinalysis+U.LAB.BRZ ordered. EDMS EDMS 00:57 00:57 Abdomen Pelvis W Con+CT.RAD.BRZ ordered. EDMS EDMS 07:11 06:20 [facility] attending , sp4 sp4 07:11 06:20 [facility] sp4 sp4 07:12 07:11 [facility] attending Dr. Llanes sp4 sp4 08:24 07:12 [facility] attending Dr. Llanes sp4 bp
--- NOTE | 2024-09-19 06:24 | RAD REPORT ---
EXAM: CT Abdomen and Pelvis With Intravenous Contrast CLINICAL HISTORY: The patient is 48 years old and is Male; ABD PAIN TECHNIQUE: Axial computed tomography images of the abdomen and pelvis with intravenous contrast. Sagittal and coronal reformatted images were created and reviewed. This CT exam was performed using one or more of the following dose reduction techniques: automated exposure control, adjustmen t of the mA and/or kV according to patient size, and/or use of iterative reconstruction technique. COMPARISON: No relevant prior studies available. FINDINGS: Lung bases: Unremarkable. No mass. No consolidation. ABDOMEN: Liver: Hepatomegaly with diffuse hepatic steatosis. Gallbladder and bile ducts: Unremarkable. No calcified stones. No ductal dilation. Pancreas: Unremarkable. No mass. No ductal dilation. Spleen: Unremarkable. No splenomegaly. Adrenals: Unremarkable. No mass. Kidneys and ureters: Unremarkable. No solid mass. No hydronephrosis. Stomach and bowel: Scattered colonic diverticula. No obstruction. No mucosal thickening. PELVIS: Appendix: No findings to suggest acute appendicitis. Bladder: There is irregular bladder wall thickening posteriorly with some irregular soft tissue d ensity and internal locules of gas/air. There are adjacent sigmoid diverticula with mild fat stranding. Reproductive: Unremarkable as visualized. ABDOMEN and PELVIS: Intraperitoneal space: Unremarkable. No free air. No significant fluid collection. Bones/joints: No acute fracture. No dislocation. Soft tissues: See above. Vasculature: Unremarkable. No abdominal aortic aneurysm. Lymph nodes: Unremarkable. No enlarged lymph nodes. IMPRESSION: 1. Scattered colonic diverticula. 2. There is irregular bladder wall thickening posteriorly with some irregular soft tissue density a nd internal locules of gas/air. There are adjacent sigmoid diverticula with mild fat stranding. Findings are concerning for diverticulitis with perforation and/or developing abscess. Recommend foll ow-up imaging to resolution to exclude bladder neoplasm. 3. Hepatomegaly with diffuse hepatic steatosis. Electronically signed by: Wes Carcamo MD 09/19/2024 05:35 AM CDT 8 Due to temporary technical issues with the PACS/[employer] reporting system, reports are being silvia d by the in-house radiologist without review as a courtesy to ensure prompt reporting the interpreting radiologist is fully responsible for the content of the report. Transcribed Date/Time: 09/19/2024 6:24 AM
[2024-09-19] MEDS ORDERED: METRONIDAZOLE 500mg IVPB 500 MG/100 ML BAG IV ONE (06:31)
[2024-09-19 09:06] VITALS: TEMP 98.1
[2024-09-19 09:08] VITALS: BP 117/84; O2SAT 98
== END 2024-09-19 08:24 | disposition short-term general hospital (02) ==
LOC: ER 00:36
DX: K57.20 Diverticulitis of large intestine with perforation and abscess without bleeding (principal); K65.9 Peritonitis, unspecified
CPT/HCPCS: 96365; 96361; 87088; 85025; 81001; 87086; 36415; 83690; 80053; 74177; 96375; 99285; 96366; Q9967; J2405; J1790; J7030 ×2; J0696; 87077; 87186